=== PATIENT | female | born 1935 | race American Indian/Alaskan Native ===

== ENCOUNTER → 2020-01-20 12:53 | Outpatient (BNVA) | payer MEDICARE, SELFPAY | PROVIDERS: PCP Internal Medicine; Referring Provider Internal Medicine; Visit Provider Hospitalist | DX: J44.9 Chronic obstructive pulmonary disease, unspecified (principal); J96.11 Chronic respiratory failure with hypoxia; M54.9 Dorsalgia, unspecified; Z99.81 Dependence on supplemental oxygen; Z79.899 Other long term (current) drug therapy | CPT/HCPCS: 99212 ==

== ENCOUNTER 2021-01-10 12:49 | Outpatient (REF) | payer MEDICARE, SELFPAY ==
--- NOTE | 2021-01-10 17:08 | PFT_ITS ---
FLOWS: FEV1 52% of predicted at 1.17 L. FVC 52% of predicted at 1.55 L. FEV1 to FVC ratio of 0.75. No bronchodilator response except in small to medium airways. LUNG VOLUMES: Total lung capacity 84% of predicted at 4.79 L. Residual volume 116% of predicted at 3.11 L. Slow vital capacity 55% of predicted at 1.67 L. Expiratory reserve volume 16% predicted at 0.10 L. Diffusion capacity is severely decreased, diffusion capacity adjust to being moderately decreased after correction for alveolar ventilation. IMPRESSION: No obstructive or restrictive ventilatory defect. No bronchodilator response. Decreased expiratory reserve volume suggests extrathoracic restriction likely secondary to abdominal obesity. Decreased diffusion capacity suggests emphysema. MD GERARD Choe/AYAANL / [id number]
== END 2021-01-10 12:50 | disposition home or self-care (01) ==
LOC: HO.RESP 12:49
PROVIDERS: Visit Provider Hospitalist
DX: J44.9 Chronic obstructive pulmonary disease, unspecified (principal)
CPT/HCPCS: 94060; 94727; 94729

== ENCOUNTER → 2021-01-20 12:54 | Outpatient (BNVA) | payer MEDICARE, SELFPAY | PROVIDERS: PCP Internal Medicine; Visit Provider Hospitalist | DX: J96.10 Chronic respiratory failure, unspecified whether with hypoxia or hypercapnia (principal); J44.9 Chronic obstructive pulmonary disease, unspecified | CPT/HCPCS: 99212 ==

== ENCOUNTER 2022-01-17 14:40 | Outpatient (REF) | payer MEDICARE, SELFPAY ==
--- NOTE | ~2022-01-17 | XR_ITS ---
EXAMINATION: XR CHEST CLINICAL INFORMATION: COPD COMPARISON: Previous chest CT February 2019 TECHNIQUE: 2 views of the chest were obtained. FINDINGS: The cardiac and mediastinal contours are stable. The lungs are well-inflated suggestive of COPD. The lungs are clear. There is no pleural effusion or pneumothorax. There are degenerative changes of the spine. XR/XR chest 2V IMPRESSION: Well-inflated lungs suggestive of COPD. No evidence for acute disease in the chest.
== END 2022-01-17 14:41 | disposition home or self-care (01) ==
LOC: HO.XRAY 14:40
PROVIDERS: PCP Internal Medicine; Visit Provider Hospitalist
DX: J44.9 Chronic obstructive pulmonary disease, unspecified (principal); J96.10 Chronic respiratory failure, unspecified whether with hypoxia or hypercapnia
CPT/HCPCS: 71046; 99212

== ENCOUNTER 2023-01-22 13:56 | Outpatient (AMB) | payer MEDICARE, SELFPAY ==
[2023-01-22 14:01] VITALS: PULSE 82; O2SAT 93; BMI 38.4
--- NOTE | 2023-01-22 14:01 | A.OFFVIS_ITS ---
Intake Vital Signs 01/22/23 14:01 Height 5 ft 9 in Weight 260 lb BMI 38.4 Pulse 82 Pulse Oximetry (%) 93 Oxygen Delivery Method Room Air Comment 2 liters Oxygen([employer]) Intake Visit Reasons: copd Gallery Or Museum Guide Required: No Allergies No Known Allergies Allergy (Verified 01/22/23 14:05) HPI HPI Comments History of Present Illness Details The patient is an 87-year-old woman with known COPD and also chronic hypoxic respiratory failure on oxygen. She doesn't use the oxygen all the time only with activity. She has had issues with chest pain specially at nighttime. She believes is related to reflux. She went to see her primary care doctor about it and had an EKG that was abnormal. She was admitted to [facility] observation. There she had an x-ray that demonstrated some changes to the left base consistent with an opacity. In addition to that we did review her CT scan of the chest from 2014 demonstrating numerous pulmonary nodules as well as interstitial changes. At this point based on her symptoms, her abnormal chest x- ray and abnormal CT scan back in 2014 she should get a repeat CT scan at this time. We did talk about her underlying reflux disease. The patient will continue following closely the reflux diet. She should also sleep elevated. She continues use her inhaler. She also did mention about having issues with low heart rates on her pulse oximeter. I explained to her that she has to be careful with the actual reading on the oximeter does not always correct. She did follow-up with her tuckpointer already.She does complaint of off and on back discomfort she is not sure of his lungs. Is moderate severity. Is transient. Not associated with breathing. The patient is concerned for the possibility of any pulmonary issues. We did review her recent CT scan from February 2019 demonstrating stable pulmonary nodules no evidence of any active pleuritis or any other explanation for her discomfort. 01/17/2022 the patient is here for a pulmonary follow-up visit. She continues to be about the same. complaints of dyspnea on exertion. She had been exercising at some point with a stationary elliptical device. She was using up to 30 minutes. She fell at 2 making some headway. Potentially being discouraged when she went walking and she became very short of breath. She had been using her oxygen. However, when she walks uses a pulse device when she exercises at home she uses continuous flow that was likely contributing to her worsening symptoms. In addition to that environment effective will also plan a role. I did encourage the patient to go back to using her stationary elliptical. She is also having hard time sleeping. She did buy melatonin but she has not used it. I did encourage her to use it at nighttime for sleep aid. I also encouraged her not to take a long nap during the daytime as her affect her ability to sleep at nighttime. She continues to use the Anoro. The patient also has a rest in a. She has not used. 01/22/2023 the patient is here for a pulmonary follow-up visit. The patient is doing fairly well from a respiratory status. Denies any worsening shortness of breath or worsening cough. She continues on her current respiratory regimen which includes Anoro and her rescue inhaler. This appeared to be affecting beneficial. No recent imaging studies to review nor pulmonary function studies. She has been complaining of mainly GI issues with nausea. Denies any aspirations into the lungs. The patient has been taking omeprazole. Will go ahead and increase her omeprazole to 40 mg. have her I did recommend the patient follow-up with GI. Also recommended a barium swallow but she opted not to. If her symptoms persist she should also consider getting an x-ray. her last chest x-ray was back in 11/2021 did not demonstrate any acute disease which is reassuring. [facility] Medical History (Updated 01/22/23 @ 20:03 by Tono Gonzalez MD) GERD (gastroesophageal reflux disease) Back pain Chronic respiratory failure COPD (chronic obstructive pulmonary disease) Family History (Updated 01/20/20 @ 20:30 by Tono Gonzalez MD) Father No problems noted. Social History (Updated 01/20/21 @ 13:14 by Mae Amezcua Kymberly) Patient Tobacco Use Status: Former Tobacco user Tobacco use type: Cigarette Years Smoked: 40 years Review of Systems Const Reports daytime sleepiness, Reports difficulty sleeping and Denies night sweats ENT Denies change in voice, Reports dry mouth, Denies lip swelling, Denies mouth pa in and Denies tongue swelling Card Denies chest pain and Reports dyspnea on exertion Resp Reports cough and Reports dyspnea on exertion GI Denies abdominal pain, Reports dyspepsia, Reports heartburn and Reports nausea Musc Reports back pain Neuro Denies Neuro-related abnormal movements Psych Denies no additional complaints Jack/Lymph Denies easy bleeding and Denies lymphadenopathy Aller/Immun Denies lip swelling and Denies tongue swelling Physical Exam Vital Signs: Last Vital Signs Pulse 82 01/22/23 14:01 Pulse Ox 93 01/22/23 14:01 Oxygen Delivery Method Room Air 01/22/23 14:01 BMI result Body Mass Index 38.4 Const General: alert HEENT General nose exam: Abnormal external nose present and Nasal discharge present Eyes Pupils: Equal, round and reactive pupils present Neck Neck: Yes normal visual inspection, Yes full ROM and Yes no lymphadenopathy Chest Chest palpation & inspection: normal inspection of the chest Resp Auscultation: diminished lung sounds Cardio Rate: regular rate Rhythm: regular rhythm Heart sounds: S1 normal heart sound present, S2 normal heart sound present and Murmur heart sound present GI Palpation (GI): Soft to palpation and nontender Auscultation: normal bowel sounds General: Yes no CVA tenderness Back/Spine/Pelvis Back: no CVA tenderness Skin General skin exam: rashes and/or lesions noted Neuro Cranial nerves: Yes Equal, round and reactive pupils present Assessment & Plan Assessment & Plan (1) Chronic respiratory failure: Code(s): J96.10 - Chronic respiratory failure, unspecified whether with hypoxia or hypercapnia Qualifiers: Respiratory failure complication: hypoxia and hypercapnia Qualified Code(s): J96.11 - Chronic respiratory failure with hypoxia; J96.12 - Chronic respiratory failure with hypercapnia Plan: Continue oxygen supplementation with activity and also consider sleep (2) COPD (chronic obstructive pulmonary disease): Code(s): J44.9 - Chronic obstructive pulmonary disease, unspecified Qualifiers: COPD type: chronic bronchitis Chronic bronchitis type: simple Qualified Code(s): J41.0 - Simple chronic bronchitis Plan: Continue Spiriva daily. She does complain of a dry mouth so she can decrease to 1 inhalation daily and see if her dry mouth does get better. (3) GERD (gastroesophageal reflux disease): Code(s): K21.9 - Gastro-esophageal reflux disease without esophagitis Qualifiers: Esophagitis presence: without esophagitis Qualified Code(s): K21.9 - Gastro-esophageal reflux disease without esophagitis (4) Nausea: Code(s): R11.0 - Nausea Plan continue Anoro trial Nasal cannula oxygen with activity and sleep Melatonin increase PPI reflux diet should f/u with PCP of GI regarding on going symptoms CXR F/U 5-6 months or sooner if she develops any worsening symptoms Orders: Orders XR chest 2V Today J41.0 - Simple chronic bronchitis Medications: New ondansetron 4 mg PO Q8H PRN 14 tabs 0RF nausea and vomiting omeprazole 40 mg PO DAILY 30 caps 3RF 30 days Coding Level of Care Code Est Pt Level 4 (64968) Diagnoses Chronic respiratory failure with hypoxia and hypercapnia J96.11; J96.12 Respiratory failure complication: hypoxia and hypercapnia Simple chronic bronchitis J41.0 COPD type: chronic bronchitis Chronic bronchitis type: simple Gastroesophageal reflux disease without esophagitis K21.9 Esophagitis presence: without esophagitis Nausea R11.0 Time Spent (min) 17
== END 2023-01-22 14:32 | disposition home or self-care (01) ==
PROVIDERS: PCP Student in an Organized Health Care Education/Training Program; Visit Provider Hospitalist
DX: J96.11 Chronic respiratory failure with hypoxia (principal); J96.12 Chronic respiratory failure with hypercapnia; J41.0 Simple chronic bronchitis; K21.9 Gastro-esophageal reflux disease without esophagitis; R11.0 Nausea
CPT/HCPCS: 99214

== ENCOUNTER → 2023-01-22 13:56 | Outpatient (BNVA) | payer MEDICARE, SELFPAY | PROVIDERS: PCP Internal Medicine; Visit Provider Hospitalist | DX: J96.11 Chronic respiratory failure with hypoxia (principal); J96.12 Chronic respiratory failure with hypercapnia; J41.0 Simple chronic bronchitis; K21.9 Gastro-esophageal reflux disease without esophagitis; R11.0 Nausea | CPT/HCPCS: 99212 ==

== ENCOUNTER 2023-06-06 10:53 | Outpatient (AMB) | payer MEDICARE, SELFPAY ==
[2023-06-06 11:19] VITALS: PULSE 77; O2SAT 91; BMI 38.4
--- NOTE | 2023-06-06 11:19 | A.OFFVIS_ITS ---
Intake Vital Signs 06/06/23 11:19 Height 5 ft 9 in Weight 260 lb BMI 38.4 Pulse 77 Pulse Source Pulse Oximeter Pulse Oximetry (%) 91 L Oxygen Delivery Method Room Air Intake Visit Reasons: copd Accessibility Lift Technician Required: No Allergies No Known Allergies Allergy (Verified 06/06/23 11:21) HPI HPI Comments History of Present Illness Details The patient is an 87-year-old woman with known COPD and also chronic hypoxic respiratory failure on oxygen. She doesn't use the oxygen all the time only with activity. She has had issues with chest pain specially at nighttime. She believes is related to reflux. She went to see her primary care doctor about it and had an EKG that was abnormal. She was admitted to [facility] observation. There she had an x-ray that demonstrated some changes to the left base consistent with an opacity. In addition to that we did review her CT scan of the chest from 2014 demonstrating numerous pulmonary nodules as well as interstitial changes. At this point based on her symptoms, her abnormal chest x- ray and abnormal CT scan back in 2014 she should get a repeat CT scan at this time. We did talk about her underlying reflux disease. The patient will continue following closely the reflux diet. She should also sleep elevated. She continues use her inhaler. She also did mention about having issues with low heart rates on her pulse oximeter. I explained to her that she has to be careful with the actual reading on the oximeter does not always correct. She did follow-up with her time study observer already.She does complaint of off and on back discomfort she is not sure of his lungs. Is moderate severity. Is transient. Not associated with breathing. The patient is concerned for the possibility of any pulmonary issues. We did review her recent CT scan from February 2019 demonstrating stable pulmonary nodules no evidence of any active pleuritis or any other explanation for her discomfort. 01/17/2022 the patient is here for a pulmonary follow-up visit. She continues to be about the same. complaints of dyspnea on exertion. She had been exercising at some point with a stationary elliptical device. She was using up to 30 minutes. She fell at 2 making some headway. Potentially being discouraged when she went walking and she became very short of breath. She had been using her oxygen. However, when she walks uses a pulse device when she exercises at home she uses continuous flow that was likely contributing to her worsening symptoms. In addition to that environment effective will also plan a role. I did encourage the patient to go back to using her stationary elliptical. She is also having hard time sleeping. She did buy melatonin but she has not used it. I did encourage her to use it at nighttime for sleep aid. I also encouraged her not to take a long nap during the daytime as her affect her ability to sleep at nighttime. She continues to use the Anoro. The patient also has a rest in a. She has not used. 01/22/2023 the patient is here for a pulmonary follow-up visit. The patient is doing fairly well from a respiratory status. Denies any worsening shortness of breath or worsening cough. She continues on her current respiratory regimen which includes Anoro and her rescue inhaler. This appeared to be affecting beneficial. No recent imaging studies to review nor pulmonary function studies. She has been complaining of mainly GI issues with nausea. Denies any aspirations into the lungs. The patient has been taking omeprazole. Will go ahead and increase her omeprazole to 40 mg. have her I did recommend the patient follow-up with GI. Also recommended a barium swallow but she opted not to. If her symptoms persist she should also consider getting an x-ray. her last chest x-ray was back in 11/2021 did not demonstrate any acute disease which is reassuring. 06/06/2023 the patient is here for a pulmonary follow-up visit. Overall the patient continues to have similar symptoms. Continues to have dyspnea on exertion moderate severity. She does use the oxygen with good effect. She also continues on the inhaler therapy. She did have a cardiac catheterization recently at [facility] demonstrated indeed that she has severe aortic stenosis. She did have an evaluation from the Cardiothoracic surgeon. And they did recommend a trans aortic valve replacement. The patient is a good candidate for that although she is waiting for her CT scan of the heart to further address the question. I do believe that having a valve replacement will definitely help her respiratory capacity. Explained to her that it may not necessarily take away the need for oxygen but should allow her to have less dyspnea symptoms. [facility] Medical History (Updated 06/06/23 @ 20:40 by Tono Gonzalez MD) Severe aortic stenosis GERD (gastroesophageal reflux disease) Back pain Chronic respiratory failure COPD (chronic obstructive pulmonary disease) Family History (System 05/02/23 @ 14:11 by Mindi De Leon) Father No problems noted. Social History (System 05/02/23 @ 14:11 by Mindi De Leon) Patient Tobacco Use Status: Former Tobacco user Tobacco use type: Cigarette Years Smoked: 40 years Review of Systems Const Reports difficulty sleeping and Denies night sweats ENT Denies change in voice, Reports dry mouth, Denies lip swelling, Denies mouth pain and Denies tongue swelling Card Denies chest pain and Reports dyspnea on exertion Resp Reports cough and Reports dyspnea on exertion GI Denies abdominal pain, Reports dyspepsia and Reports heartburn Musc Reports back pain Neuro Denies Neuro-related abnormal movements Psych Denies no additional complaints Jack/Lymph Denies easy bleeding and Denies lymphadenopathy Aller/Immun Denies lip swelling and Denies tongue swelling Physical Exam Vital Signs: Last Vital Signs Pulse 77 06/06/23 11:19 Pulse Ox 91 L 06/06/23 11:19 Oxygen Delivery Method Room Air 06/06/23 11:19 BMI result Body Mass Index 38.4 Const General: alert HEENT General nose exam: Abnormal external nose present and Nasal discharge present Eyes Pupils: Equal, round and reactive pupils present Neck Neck: Yes normal visual inspection, Yes full ROM and Yes no lymphadenopathy Chest Chest palpation & inspection: normal inspection of the chest Resp Auscultation: diminished lung sounds Cardio Rate: regular rate Rhythm: regular rhythm Heart sounds: S1 normal heart sound present, S2 normal heart sound present and Murmur heart sound present GI Palpation (GI): Soft to palpation and nontender Auscultation: normal bowel sounds General: Yes no CVA tenderness Back/Spine/Pelvis Back: no CVA tenderness Skin General skin exam: rashes and/or lesions noted Neuro Cranial nerves: Yes Equal, round and reactive pupils present Assessment & Plan Assessment & Plan (1) Chronic respiratory failure: Code(s): J96.10 - Chronic respiratory failure, unspecified whether with hypoxia or hypercapnia Qualifiers: Respiratory failure complication: hypoxia and hypercapnia Qualified Code(s): J96.11 - Chronic respiratory failure with hypoxia; J96.12 - Chronic respiratory failure with hypercapnia Plan: Continue oxygen supplementation with activity and also consider sleep (2) COPD (chronic obstructive pulmonary disease): Code(s): J44.9 - Chronic obstructive pulmonary disease, unspecified Qualifiers: COPD type: chronic bronchitis Chronic bronchitis type: simple Qualified Code(s): J41.0 - Simple chronic bronchitis Plan: Continue Spiriva daily. She does complain of a dry mouth so she can decrease to 1 inhalation daily and see if her dry mouth does get better. (3) GERD (gastroesophageal reflux disease): Code(s): K21.9 - Gastro-esophageal reflux disease without esophagitis Qualifiers: Esophagitis presence: without esophagitis Qualified Code(s): K21.9 - Gastro-esophageal reflux disease without esophagitis (4) Severe aortic stenosis: Code(s): I35.0 - Nonrheumatic aortic (valve) stenosis Plan continue Anoro Nasal cannula oxygen with activity and sleep Melatonin reflux diet Agree with TAVR, should help with her ongoing symptoms PFTs in 5-6 months F/U 5-6 months with PFTs and 6MWT Orders: Orders PFT pulmonary function test 5 Months J41.0 - Simple chronic bronchitis Coding Level of Care Code Est Pt Level 4 (54466) Diagnoses Chronic respiratory failure with hypoxia and hypercapnia J96.11; J96.12 Respiratory failure complication: hypoxia and hypercapnia Simple chronic bronchitis J41.0 COPD type: chronic bronchitis Chronic bronchitis type: simple Gastroesophageal reflux disease without esophagitis K21.9 Esophagitis presence: without esophagitis Severe aortic stenosis I35.0 Time Spent (min) 18
== END 2023-06-06 11:47 | disposition home or self-care (01) ==
PROVIDERS: PCP Student in an Organized Health Care Education/Training Program; Visit Provider Hospitalist
DX: J96.11 Chronic respiratory failure with hypoxia (principal); J96.12 Chronic respiratory failure with hypercapnia; J41.0 Simple chronic bronchitis; K21.9 Gastro-esophageal reflux disease without esophagitis; I35.0 Nonrheumatic aortic (valve) stenosis
CPT/HCPCS: 99214

== ENCOUNTER → 2023-06-06 10:53 | Outpatient (BNVA) | payer MEDICARE, SELFPAY | PROVIDERS: PCP Student in an Organized Health Care Education/Training Program; Visit Provider Hospitalist | DX: J96.11 Chronic respiratory failure with hypoxia (principal); J96.12 Chronic respiratory failure with hypercapnia; J41.0 Simple chronic bronchitis; K21.9 Gastro-esophageal reflux disease without esophagitis; I35.0 Nonrheumatic aortic (valve) stenosis | CPT/HCPCS: 99212 ==

== ENCOUNTER 2023-11-08 13:50 | Outpatient (AMB) | payer MEDICARE, SELFPAY ==
[2023-11-08 13:55] VITALS: PULSE 85; O2SAT 86; BMI 39.1
--- NOTE | 2023-11-08 13:55 | MHC.OFFVIS ---
Vital Signs 11/08/23 13:55 Height 5 ft 9 in Weight 265 lb BMI 39.1 Pulse 85 Pulse Source Pulse Oximeter Pulse Oximetry (%) 86 L Oxygen Delivery Method Room Air Intake Visit Reasons: COPD Setup Technician Required: No Allergies No Known Allergies Allergy (Verified 11/08/23 13:57) HPI Comments Details: The patient is an 88-year-old woman with known COPD and also chronic hypoxic respiratory failure on oxygen. She doesn't use the oxygen all the time only with activity. She has had issues with chest pain specially at nighttime. She believes is related to reflux. She went to see her primary care doctor about it and had an EKG that was abnormal. She was admitted to [facility] observation. There she had an x-ray that demonstrated some changes to the left base consistent with an opacity. In addition to that we did review her CT scan of the chest from 2014 demonstrating numerous pulmonary nodules as well as interstitial changes. At this point based on her symptoms, her abnormal chest x-ray and abnormal CT scan back in 2014 she should get a repeat CT scan at this time. We did talk about her underlying reflux disease. The patient will continue following closely the reflux diet. She should also sleep elevated. She continues use her inhaler. She also did mention about having issues with low heart rates on her pulse oximeter. I explained to her that she has to be careful with the actual reading on the oximeter does not always correct. She did follow-up with her [employer] security consultant already.She does complaint of off and on back discomfort she is not sure of his lungs. Is moderate severity. Is transient. Not associated with breathing. The patient is concerned for the possibility of any pulmonary issues. We did review her recent CT scan from February 2019 demonstrating stable pulmonary nodules no evidence of any active pleuritis or any other explanation for her discomfort. 01/17/2022 the patient is here for a pulmonary follow-up visit. She continues to be about the same. complaints of dyspnea on exertion. She had been exercising at some point with a stationary elliptical device. She was using up to 30 minutes. She fell at 2 making some headway. Potentially being discouraged when she went walking and she became very short of breath. She had been using her oxygen. However, when she walks uses a pulse device when she exercises at home she uses continuous flow that was likely contributing to her worsening symptoms. In addition to that environment effective will also plan a role. I did encourage the patient to go back to using her stationary elliptical. She is also having hard time sleeping. She did buy melatonin but she has not used it. I did encourage her to use it at nighttime for sleep aid. I also encouraged her not to take a long nap during the daytime as her affect her ability to sleep at nighttime. She continues to use the Anoro. The patient also has a rest in a. She has not used. 01/22/2023 the patient is here for a pulmonary follow-up visit. The patient is doing fairly well from a respiratory status. Denies any worsening shortness of breath or worsening cough. She continues on her current respiratory regimen which includes Anoro and her rescue inhaler. This appeared to be affecting beneficial. No recent imaging studies to review nor pulmonary function studies. She has been complaining of mainly GI issues with nausea. Denies any aspirations into the lungs. The patient has been taking omeprazole. Will go ahead and increase her omeprazole to 40 mg. have her I did recommend the patient follow-up with GI. Also recommended a barium swallow but she opted not to. If her symptoms persist she should also consider getting an x-ray. her last chest x-ray was back in 11/2021 did not demonstrate any acute disease which is reassuring. 06/06/2023 the patient is here for a pulmonary follow-up visit. Overall the patient continues to have similar symptoms. Continues to have dyspnea on exertion moderate severity. She does use the oxygen with good effect. She also continues on the inhaler therapy. She did have a cardiac catheterization recently at [facility] demonstrated indeed that she has severe aortic stenosis. She did have an evaluation from the Cardiothoracic surgeon. And they did recommend a trans aortic valve replacement. The patient is a good candidate for that although she is waiting for her CT scan of the heart to further address the question. I do believe that having a valve replacement will definitely help her respiratory capacity. Explained to her that it may not necessarily take away the need for oxygen but should allow her to have less dyspnea symptoms. 11/08/2023 the patient is here for a pulmonary follow-up visit. Overall she is doing better. She did have her aortic valve replaced. After she started cardiac rehab. She did recover from COVID. She has still been using her oxygen. She has a hard time carrying the oxygen tanks. They are not portable for her. We did undergo pulmonary function studies which were reviewed. It appears she does have moderate COPD. Her diffusing capacity 32% predicted she little better from before which was only 28%. Therefore she has actually done slightly better compared to 202. We did go for a walking oximetry and we did a titration study with a portable oxygen concentrator. She was able to maintain her pulse ox with 4 L pulse. She does not need oxygen at rest. We will request a portable oxygen concentrator for the patient in order for her to have better portability outside of the home. She is also going to continue with cardiac rehabilitation. [facility] Medical History (Updated 11/08/23 @ 23:08 by Tono Gonzalez MD) Severe aortic stenosis GERD (gastroesophageal reflux disease) Back pain Chronic respiratory failure COPD (chronic obstructive pulmonary disease) Family History (System 05/02/23 @ 14:11 by Mindi De Leon) Father No problems noted. Social History (System 05/02/23 @ 14:11 by Mindi De Leon) Patient Tobacco Use Status: Former Tobacco user Tobacco use type: Cigarette Years Smoked: 40 years Review of Systems Const Reports difficulty sleeping and Denies night sweats ENT Denies change in voice, Reports dry mouth, Denies lip swelling, Denies mouth pain and Denies tongue swelling Card Denies chest pain and Reports dyspnea on exertion Resp Reports cough and Reports dyspnea on exertion GI Denies abdominal pain, Reports dyspepsia and Reports heartburn Musc Reports back pain Neuro Denies Neuro-related abnormal movements Psych Denies no additional complaints Jack/Lymph Denies easy bleeding and Denies lymphadenopathy Aller/Immun Denies lip swelling and Denies tongue swelling Physical Exam Vital Signs: Last Vital Signs Pulse 85 11/08/23 13:55 Pulse Ox 86 L 11/08/23 13:55 Oxygen Delivery Method Room Air 11/08/23 13:55 BMI result Body Mass Index 39.1 Const General: alert HEENT General nose exam: Abnormal external nose present and Nasal discharge present Eyes Pupils: Equal, round and reactive pupils present Neck Neck: Yes normal visual inspection, Yes full ROM and Yes no lymphadenopathy Chest Chest palpation & inspection: normal inspection of the chest Resp Auscultation: diminished lung sounds Cardio Rate: regular rate Rhythm: regular rhythm Heart sounds: S1 normal heart sound present, S2 normal heart sound present and Murmur heart sound present GI Palpation (GI): Soft to palpation and nontender Auscultation: normal bowel sounds General: Yes no CVA tenderness Back/Spine/Pelvis Back: no CVA tenderness Skin General skin exam: rashes and/or lesions noted Neuro Cranial nerves: Yes Equal, round and reactive pupils present Office Procedures 6 Minute Walk Time:: 23:13 SPO2 % at rest: 92 Pulse at rest: 70 SPO2 % during excercise: 86 Pulse during excercise: 89 Supplemental Oxygen: on RA at rest pox 92%, then ambulated and desaturated to 86% on RA with acitivity. then placed on POC, titrated up to 4l/pulse to keep pox 93% with acitivty 89389 - 6 Minute Walk Assessment & Plan Assessment & Plan (1) Chronic respiratory failure: Code(s): J96.10 - Chronic respiratory failure, unspecified whether with hypoxia or hypercapnia Category: Medical Plan: Continue oxygen supplementation with activity and also consider sleep (2) COPD (chronic obstructive pulmonary disease): Code(s): J44.9 - Chronic obstructive pulmonary disease, unspecified Category: Medical Plan: Continue Spiriva daily. She does complain of a dry mouth so she can decrease to 1 inhalation daily and see if her dry mouth does get better. (3) GERD (gastroesophageal reflux disease): Code(s): K21.9 - Gastro-esophageal reflux disease without esophagitis Category: Medical (4) Severe aortic stenosis: Comment: s/p TVAR Code(s): I35.0 - Nonrheumatic aortic (valve) stenosis Category: Medical Plan continue Anoro Nasal cannula oxygen: revision: The patient benefits from a portable oxygen concentrator in order to have better portability outside of the home.She qualifies for 4L/pulse with acitivity and 2L/min with sleep Melatonin reflux diet continue with cardiac rehab F/U 6-8 months Coding Level of Care Code Est Pt Level 4 (59267) Complex EM visit Add On G2211 Diagnoses Chronic respiratory failure J96.10 COPD (chronic obstructive pulmonary disease) J44.9 GERD (gastroesophageal reflux disease) K21.9 Severe aortic stenosis I35.0 CPT Codes Coding ([id number]) Time Spent (min) 20
[2023-11-08 23:12] VITALS: PULSE 70; O2SAT 92
== END 2023-11-08 14:25 | disposition home or self-care (01) ==
PROVIDERS: PCP Student in an Organized Health Care Education/Training Program; Visit Provider Hospitalist
DX: J96.10 Chronic respiratory failure, unspecified whether with hypoxia or hypercapnia (principal); J44.9 Chronic obstructive pulmonary disease, unspecified; K21.9 Gastro-esophageal reflux disease without esophagitis; I35.0 Nonrheumatic aortic (valve) stenosis
CPT/HCPCS: 94618; 99214; G2211

== ENCOUNTER → 2023-11-08 13:50 | Outpatient (BNVA) | payer MEDICARE, SELFPAY | PROVIDERS: PCP Student in an Organized Health Care Education/Training Program; Visit Provider Hospitalist | DX: J96.11 Chronic respiratory failure with hypoxia (principal); J44.9 Chronic obstructive pulmonary disease, unspecified; I35.0 Nonrheumatic aortic (valve) stenosis; K21.9 Gastro-esophageal reflux disease without esophagitis; Z99.81 Dependence on supplemental oxygen; Z95.2 Presence of prosthetic heart valve | CPT/HCPCS: 94618; 99212 ==

== ENCOUNTER 2024-06-10 13:59 | Outpatient (AMB) | payer MEDICARE, SELFPAY ==
[2024-06-10 14:02] VITALS: BP 160/72; PULSE 102; O2SAT 89; BMI 39.9
--- NOTE | 2024-06-10 14:02 | A.OFFVIS_ITS ---
Vital Signs 06/10/24 14:02 Height 5 ft 9 in Weight 270 lb 1.06 oz BMI 39.9 BP 160/72 H Blood Pressure Location Rt brachial Position Sitting Pulse 102 H Pulse Source Pulse Oximeter Pulse Oximetry (%) 89 L Oxygen Delivery Method Room Air Intake Visit Reasons: COPD Allergies No Known Allergies Allergy (Verified 06/10/24 14:06) HPI Comments Details: The patient is an 88-year-old woman with known COPD and also chronic hypoxic respiratory failure on oxygen. She doesn't use the oxygen all the time only with activity. She has had issues with chest pain specially at nighttime. She believes is related to reflux. She went to see her primary care doctor about it and had an EKG that was abnormal. She was admitted to [facility] observation. There she had an x-ray that demonstrated some changes to the left base consistent with an opacity. In addition to that we did review her CT scan of the chest from 2014 demonstrating numerous pulmonary nodules as well as interstitial changes. At this point based on her symptoms, her abnormal chest x- ray and abnormal CT scan back in 2014 she should get a repeat CT scan at this time. We did talk about her underlying reflux disease. The patient will continue following closely the reflux diet. She should also sleep elevated. She continues use her inhaler. She also did mention about having issues with low heart rates on her pulse oximeter. I explained to her that she has to be careful with the actual reading on the oximeter does not always correct. She did follow-up with her nuclear fuels research engineer already.She does complaint of off and on back discomfort she is not sure of his lungs. Is moderate severity. Is transient. Not associated with breathing. The patient is concerned for the possibility of any pulmonary issues. We did review her recent CT scan from February 2019 demonstrating stable pulmonary nodules no evidence of any active pleuritis or any other explanation for her discomfort. 01/17/2022 the patient is here for a pulmonary follow-up visit. She continues to be about the same. complaints of dyspnea on exertion. She had been exercising at some point with a stationary elliptical device. She was using up to 30 minutes. She fell at 2 making some headway. Potentially being discouraged when she went walking and she became very short of breath. She had been using her oxygen. However, when she walks uses a pulse device when she exercises at home she uses continuous flow that was likely contributing to her worsening symptoms. In addition to that environment effective will also plan a role. I did encourage the patient to go back to using her stationary elliptical. She is also having hard time sleeping. She did buy melatonin but she has not used it. I did encourage her to use it at nighttime for sleep aid. I also encouraged her not to take a long nap during the daytime as her affect her ability to sleep at nighttime. She continues to use the Anoro. The patient also has a rest in a. She has not used. 01/22/2023 the patient is here for a pulmonary follow-up visit. The patient is doing fairly well from a respiratory status. Denies any worsening shortness of breath or worsening cough. She continues on her current respiratory regimen which includes Anoro and her rescue inhaler. This appeared to be affecting beneficial. No recent imaging studies to review nor pulmonary function studies. She has been complaining of mainly GI issues with nausea. Denies any aspirations into the lungs. The patient has been taking omeprazole. Will go ahead and increase her omeprazole to 40 mg. have her I did recommend the patient follow-up with GI. Also recommended a barium swallow but she opted not to. If her symptoms persist she should also consider getting an x-ray. her last chest x-ray was back in 11/2021 did not demonstrate any acute disease which is reassuring. 06/06/2023 the patient is here for a pulmonary follow-up visit. Overall the patient continues to have similar symptoms. Continues to have dyspnea on exertion moderate severity. She does use the oxygen with good effect. She also continues on the inhaler therapy. She did have a cardiac catheterization recently at [facility] demonstrated indeed that she has severe aortic stenosis. She did have an evaluation from the Cardiothoracic surgeon. And they did recommend a trans aortic valve replacement. The patient is a good candidate for that although she is waiting for her CT scan of the heart to further address the question. I do believe that having a valve replacement will definitely help her respiratory capacity. Explained to her that it may not necessarily take away the need for oxygen but should allow her to have less dyspnea symptoms. 11/08/2023 the patient is here for a pulmonary follow-up visit. Overall she is doing better. She did have her aortic valve replaced. After she started cardiac rehab. She did recover from COVID. She has still been using her oxygen. She has a hard time carrying the oxygen tanks. They are not portable for her. We did undergo pulmonary function studies which were reviewed. It appears she does have moderate COPD. Her diffusing capacity 32% predicted she little better from before which was only 28%. Therefore she has actually done slightly better compared to 2020. We did go for a walking oximetry and we did a titration study with a portable oxygen concentrator. She was able to maintain her pulse ox with 4 L pulse. She does not need oxygen at rest. We will request a portable oxygen concentrator for the patient in order for her to have better portability outside of the home. She is also going to continue with cardiac rehabilitation. 06/10/2024 the patient is here for pulmonary follow-up visit. Overall the patient has been doing about the same. She does complaint of cough and shortness of breath. But she does not really want to take any additional medications at this time. She is fine taking the Anoro. She also has nasal congestion and postnasal drip. Moderate severity but she does want using nasal sprays right now. She thinks she has allergies. She can always start a allergy medicines he if this provides some relief. She continues use the oxygen with good effect. She has a portable oxygen concentrator that she finally got from [facility]. The POC has been affecting beneficial for her. Therefore will continue with the current therapy. If she does want to start nasal therapy or if she wants to maximize her allergy medicines or if she wants to switch over to Trelegy she will call. [facility] Medical History (Updated 11/08/23 @ 23:08 by Tono Gonzalez MD) Severe aortic stenosis GERD (gastroesophageal reflux disease) Back pain Chronic respiratory failure COPD (chronic obstructive pulmonary disease) Family History (System 05/02/23 @ 14:11 by Mindi De Leon) Father No problems noted. Social History Patient Tobacco Use Status: Former Tobacco user Tobacco use type: Cigarette Years Smoked: 40 years Review of Systems Const Reports difficulty sleeping and Denies night sweats ENT Denies change in voice, Reports dry mouth, Denies lip swelling, Denies mouth pain and Denies tongue swelling Card Denies chest pain and Reports dyspnea on exertion Resp Reports cough and Reports dyspnea on exertion GI Denies abdominal pain, Reports dyspepsia and Reports heartburn Musc Reports back pain Neuro Denies Neuro-related abnormal movements Psych Denies no additional complaints Jack/Lymph Denies easy bleeding and Denies lymphadenopathy Aller/Immun Denies lip swelling and Denies tongue swelling Physical Exam Vital Signs: Last Vital Signs Pulse 102 H 06/10/24 14:02 BP 160/72 H 06/10/24 14:02 Pulse Ox 89 L 06/10/24 14:02 Oxygen Delivery Method Room Air 06/10/24 14:02 BMI result Body Mass Index 39.9 Const General: alert HEENT General nose exam: Abnormal external nose present and Nasal discharge present Eyes Pupils: Equal, round and reactive pupils present Neck Neck: Yes normal visual inspection, Yes full ROM and Yes no lymphadenopathy Chest Chest palpation & inspection: normal inspection of the chest Resp Auscultation: diminished lung sounds Cardio Rate: regular rate Rhythm: regular rhythm Heart sounds: S1 normal heart sound present, S2 normal heart sound present and Murmur heart sound present GI Palpation (GI): Soft to palpation and nontender Auscultation: normal bowel sounds General: Yes no CVA tenderness Back/Spine/Pelvis Back: no CVA tenderness Skin General skin exam: rashes and/or lesions noted Neuro Cranial nerves: Yes Equal, round and reactive pupils present Assessment & Plan Assessment & Plan (1) Severe aortic stenosis: Comment: s/p TVAR Code(s): I35.0 - Nonrheumatic aortic (valve) stenosis Category: Medical (2) Chronic respiratory failure: Code(s): J96.10 - Chronic respiratory failure, unspecified whether with hypoxia or hypercapnia Category: Medical Qualifiers: Respiratory failure complication: hypoxia and hypercapnia Qualified Code(s): J96.11 - Chronic respiratory failure with hypoxia; J96.12 - Chronic respiratory failure with hypercapnia Plan: Continue oxygen supplementation with activity and also consider sleep (3) COPD (chronic obstructive pulmonary disease): Code(s): J44.9 - Chronic obstructive pulmonary disease, unspecified Category: Medical Qualifiers: COPD type: chronic bronchitis Chronic bronchitis type: mixed simple and mucopurulent Qualified Code(s): 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 She does complain of a dry mouth so she can decrease to 1 inhalation daily and see if her dry mouth does get better. (4) GERD (gastroesophageal reflux disease): Code(s): K21.9 - Gastro-esophageal reflux disease without esophagitis Category: Medical Qualifiers: Esophagitis presence: without esophagitis Qualified Code(s): K21.9 - Gastro-esophageal reflux disease without esophagitis Plan continue Anoro, consider Trelegy Nasal cannula oxygen: revision: The patient benefits from a portable oxygen concentrator in order to have better portability outside of the home.She qualifies for 4L/pulse with acitivity and 2L/min with sleep Melatonin reflux diet F/U 8-12 months Coding Level of Care Code Est Pt Level 4 (57769) Diagnoses Severe aortic stenosis I35.0 Chronic respiratory failure with hypoxia and hypercapnia J96.11; J96.12 Respiratory failure complication: hypoxia and hypercapnia Mixed simple and mucopurulent chronic bronchitis J41.8 COPD type: chronic bronchitis Chronic bronchitis type: mixed simple and mucopurulent Gastroesophageal reflux disease without esophagitis K21.9 Esophagitis presence: without esophagitis Time Spent (min) 16
--- OUTSIDE RECORDS SUMMARY | 2024-06-10 17:27 | XMS_ITS | Encounter Summary ---
Author Organization [facility] Address [address] [place] [address] Care Team Providers Care Swahili Teacher Name Role Phone Bell Dawson MD Primary Care Provider Unavailabl e Lisette Denise MD Primary Care Provider U Lisette Weaver MD Primary Care Provider U navailable Ta Davidson MD Unavailable Unavailable Eliezer Nolen MD Unavailable Unavailable China Cotton NP Unavailable [phone] Pk Mclean MD Primary Care Provider [phone] Dhiraj Mcclain MD Unavailable [phone] Encounter Details Date Type Department Care Team Description 08/26/2013 Hospital Medical Records [address] [place] [address] Ricardo Du MD Social History Tobacco Use Types Packs/Day Years Used Date Smoking Tobacco: Former Cigarettes 2 Q uit: 1985 Smokeless Tobacco: Never Alcohol Use Standard Drinks/Week Comments Yes 0 (1 standard drink = 0.6 oz pur e alcohol) occasionally Alcohol Habits Answer Date Recorded How often do you have a drink containing alcohol ? 2-3 times a week 07/28/2021 How many drinks containing a lcohol do you have on a typical day when you are drinking? 1 or 2 07/28/2021 How often do you have six or more drinks on one occasion? Never 07/28/2021 Social Isolation Answer Date Recorded In a typical week, how many times do you talk on the phone with family, friends, or neighbors? More than three times a week 07/28/2021 How often do you get togethe r with friends or relatives? Never 07/28/2021 How often do you attend chur or confucianist services? More than 4 times per year 07/28/2021 Do you belong to any clubs o r organizations such as advent groups, unions, fraternal or athletic groups, or school groups? No 07/28/2021 How often do you attend meet ings of the clubs or organizations you belong to? Never 07/28/2021 Are you now , , , , never or living with a partner? 07/28/2021 Physical Activity Answer Date Recorded On average, how many days pe r week do you engage in moderate to strenuous exercise (like walking fast, running, jogging, dancing, swimming, biking, or other activities that cause a light or heavy sweat)? 0 days 07/28/2021 On average, how many minutes do you engage in exercise at this level? 0 min 07/28/2021 Stress Answer Date Recorded Do you feel stress - tense, restless, nervous, or anxious, or unable to sleep at night because your mind is troubled all the time - these days? Not at all 07/28/2021 Financial Resource Strain Answer Date R ecorded How hard is it for you to pa y for the very basics like food, housing, medical care, and heating? Not hard at all 07/28/2021 Intimate Partner Violence Answer Date R ecorded Within the last year, have y ou been afraid of your partner or ex-partner? No 07/28/2021 Within the last year, have y ou been humiliated or emotionally abused in other ways by your partner or ex-partner? No Within the last year, have y ou been kicked, hit, slapped, or otherwise physically hurt by your partner or ex-partner? No 07/28/2021 Within the last year, have y ou been raped or forced to have any kind of sexual activity by your partner or ex-partner? No 07/28/2021 Food Insecurity Answer Date Recorded Within the past 12 months, y ou worried that your food would run out before you got money to buy more. Never true 07/28/2021 Within the past 12 months, t he food you bought just didn't last and you didn't have money to get more. Never true 07/28/2021 Transportation Needs Answer Date Record ed In the past 12 months, has l ack of transportation kept you from medical appointments or from getting medications? No 07/17 In the past 12 months, has l ack of transportation kept you from meetings, work, or getting things needed for daily living? No 07/28/2021 Housing Stability Answer Date Recorded In the last 12 months, was t here a time when you were not able to pay the mortgage or rent on time? No 07/28/2021 In the last 12 months, how many places have you lived? 1 07/28/2021 In the last 12 months, was t here a time when you did not have a steady place to sleep or slept in a prison (including now)? No 07/28/2021 Sex Assigned at Date Recorded Not on file Job Start Date Occupation Industry Not on file Not on file Not on file documented as of this encounter Plan of Treatment Not on file documented as of this encounter Visit Diagnoses Not on filedocumented in this encounter Care Teams Swahili Teacher Relationship Specialty Start Date End Date Bell Dawson MD PCP - General Family Practice 07/02/17 05/05/18 Lisette Denise MD PCP - General Internal Medicine 05/06/18 Lisette Denise MD PCP - General 11/02/14 8 Pk Mclean MD PCP - General Internal Medicine 03/22/22 Ta Davidson MD Specialist Urology 07/28/21 Eliezer Nolen MD Specialist Rheumatology 07/28/21 China Cotton NP Nurse Practitioner Cardiology 10/04/21 Dhiraj Mcclain MD Specialist Cardiology 08/17/23 documented as of this encounter
--- OUTSIDE RECORDS SUMMARY | 2024-06-10 17:27 | XMS_ITS | Encounter Summary ---
Author Organization [facility] Address [address] [place] [address] Care Team Providers Care Bell Attendant Name Role Phone Ta Davidson MD Unavailable Unavailable Eliezer Nolen MD Unavailable Unavailable China Cotton NP Unavailable [phone] Pk Mclean MD Primary Care Provider [phone] Dhiraj Mcclain MD Unavailable [phone] Reason for Visit * Reason Onset Date Comments Hospital Procedure 05/17/2023 L heart cath ? PCI Encounter Details Date Type Department Care Team Description 05/17/2023 Telephone Cardio PVC POC [address] [place] [address] China Cotton, BETHANY [address] [place] [address] [place] [address] Hospital Procedure (L heart cath ? PCI) Social History Tobacco Use Types Packs/Day Years Used Date Smoking Tobacco: Former Cigarettes Q uit: 1986 Smokeless Tobacco: Never Alcohol Use Standard Drinks/Week Comments Yes 0 (1 standard drink = 0.6 oz pure alcohol) binge drinking wine on weekend 1 bottle/sitting Alcohol Habits Answer Date Recorded How often [...] How often do you attend chur or pentecostalism services? More than 4 times per year 07/28/2021 Do you belong to any clubs o r organizations such as mandaen groups, unions, fraAdayana or athletic groups, or school groups? No [...] place to sleep or slept in a intermediate (including now)? No 07/28/2021 Sex Assigned at Date Recorded Not on file Job Start Date Occupation Industry Not on file Not on file Not on file documented as of this encounter Miscellaneous Notes * Telephone Encounter - Luisa Carmen C.M.A. - 05/17/2023 2:18 PM EST I left a message for the patietn to return my call to give cath instructions Pt is scheduled for a LHeart Cath on Sunday May 21, 2023 at 7:30 am arrival [place] 6:000 [place] spoke with pt., we went over the appointment information and the pre-procedure instructions including needing someone to drive her, staying NPO after midnight and the need for labs. She can take all her medications the morning of the procedure with a small amount of water the morning of the procedure. I was able to answer her questions and she acknowledged understanding. documented in this encounter Plan of Treatment Not on file documented as of this encounter Visit Diagnoses Not on filedocumented in this encounter Care Teams Bell Attendant Relationship Specialty Start Date End Date Pk Mclean MD PCP - General Internal Medicine 03/22/22 Ta Davidson MD Specialist Urology 07/28/21 Eliezer Nolen MD Specialist Rheumatology 07/28/21 China Cotton NP Nurse Practitioner Cardiology 10/04/21 Dhiraj Mcclain MD Specialist Cardiology 08/17/23 documented as of this encounter
--- OUTSIDE RECORDS SUMMARY | 2024-06-10 17:27 | XMS_ITS | Encounter Summary ---
Author Organization [facility] Address [address] [place] [address] Care Team Providers Care Wad Compressor Operator Adjuster Name Role Phone Lisette Denise MD Primary Care Provider U Ta Grande MD Unavailable Unavailable Eliezer Nolen MD Unavailable Unavailable China Cotton NP Unavailable [phone] Pk Mclean MD Primary Care Provider [phone] Dhiraj Mcclain MD Unavailable [phone] Encounter Details Date Type Department Care Team Description 07/18/2021 Airline Transport Pilot Report Medical Records [address] [place] [id number] Ta Davidson MD Social History Tobacco Use Types Packs/Day Years Used Date Smoking Tobacco: Former Cigarettes Q uit: 1985 Smokeless Tobacco: Never Alcohol Use Standard Drinks/Week Comments Yes 0 (1 standard drink = 0.6 oz pure alcohol) binge drining wine on weekend 1 bottle/sitting Alcohol Habits [...] 07/28/2021 How often do you attend chur ch or protestant services? More than 4 times per year 07/28/2021 Do you belong to any clubs o r organizations such as christianity groups, unions, fraternal or athletic groups, or [...] place to sleep or slept in a chcf (including now)? No 07/28/2021 Sex Assigned at Date Recorded Not on file Job Start Date Occupation Industry Not on file Not on file Not on file documented as of this encounter Plan of Treatment Not on file documented as of this encounter Visit Diagnoses Not on filedocumented in this encounter Care Teams Wad Compressor Operator Adjuster Relationship Specialty Start Date End Date Lisette Denise MD PCP - General Internal Medicine 05/06/18 Pk Mclean MD PCP - General Internal Medicine 03/22/22 Ta Davidson MD Specialist Urology 07/28/21 Eliezer Nolen MD Specialist Rheumatology 07/28/21 China Cotton NP Nurse Practitioner Cardiology 10/04/21 Dhiraj Mcclain MD Specialist Cardiology 08/17/23 documented as of this encounter
--- OUTSIDE RECORDS SUMMARY | 2024-06-10 17:27 | XMS_ITS | Encounter Summary ---
Author Organization [facility] Address [address] [place] [address] Care Team Providers Care Warp Knitter Helper Name Role Phone Ta Davidson MD Unavailable Unavailable Eliezer Nolen MD Unavailable Unavailable China Cotton NP Unavailable [phone] Pk Mclean MD Primary Care Provider [phone] Dhiraj Mcclain MD Unavailable [phone] Encounter Details Date Type Department Care Team Description 10/30/2023 SCAN Medical Records [address] [place] [id number] Campbell Byrnes MD Social History Tobacco Use Types Packs/Day [...] Never 07/28/2021 How often do you attend [facility] or nondenominational services? More than 4 times per year 07/28/2021 Do you belong to any clubs o r organizations such as roman catholic groups, unions, fraternal or athletic groups, or [...] place to sleep or slept in a alf (including now)? No 07/28/2021 Sex Assigned at Date Recorded Not on file Job Start Date Occupation Industry Not on file Not on file Not on file documented as of this encounter Plan of Treatment Not on file documented as of this encounter Procedures Procedure Name Priority Date/Time Associated Diagnosis Comments OUTSIDE PFT Routine 10/30/2023 documented in this encounter Results * OUTSIDE PFT (10/30/2023) Provider Default PULMONOLOGY documented in this encounter Visit Diagnoses Not on filedocumented in this encounter Care Teams Warp Knitter Helper Relationship Specialty Start Date End Date Pk Mclean MD PCP - General Internal Medicine 03/22/22 Ta Davidson MD Specialist Urology 07/28/21 Eliezer Nolen MD Specialist Rheumatology 07/28/21 China Cotton NP Nurse Practitioner Cardiology 10/04/21 Dhiraj Mcclain MD Specialist Cardiology 08/17/23 documented as of this encounter
--- OUTSIDE RECORDS SUMMARY | 2024-06-10 17:27 | XMS_ITS | Encounter Summary ---
Author Organization [facility] Address [address] [place] [address] Care Team Providers Care Lay Ups Assembler Name Role Phone Ta Davidson MD Unavailable Unavailable Eliezer Nolen MD Unavailable Unavailable China Cotton NP Unavailable [phone] Pk Mclean MD Primary Care Provider [phone] Dhiraj Mcclain MD Unavailable [phone] Encounter Details Date Type Department Care Team Description 09/07/2023 SCAN Medical Records [address] [place] [id number] Abstract, Provider Social History Tobacco Use Types Packs/Day Years [...] Never 07/28/2021 How often do you attend [facility] or druze services? More than 4 times per year 07/28/2021 Do you belong to any clubs o r organizations such as adventism groups, unions, fraternal or athletic groups, or [...] place to sleep or slept in a jail (including now)? No 07/28/2021 Sex Assigned at Date Recorded Not on file Job Start Date Occupation Industry Not on file Not on file Not on file documented as of this encounter Plan of Treatment Not on file documented as of this encounter Procedures Procedure Name Priority Date/Time Associated Diagnosis Comments OUTSIDE LAB Routine 09/07/2023 documented in this encounter Results * OUTSIDE LAB (09/07/2023) Provider Abstract LAB documented in this encounter Visit Diagnoses Not on filedocumented in this encounter Care Teams Lay Ups Assembler Relationship Specialty Start Date End Date Pk Mclean MD PCP - General Internal Medicine 03/22/22 Ta Davidson MD Specialist Urology 07/28/21 Eliezer Nolen MD Specialist Rheumatology 07/28/21 China Cotton NP Nurse Practitioner Cardiology 10/04/21 Dhiraj Mcclain MD Specialist Cardiology 08/17/23 documented as of this encounter
--- OUTSIDE RECORDS SUMMARY | 2024-06-10 17:27 | XMS_ITS | Encounter Summary ---
Author Organization [facility] Address [address] [place] [address] Care Team Providers Care Clearing Inspector Name Role Phone Ta Davidson MD Unavailable Unavailable Eliezer Nolen MD Unavailable Unavailable China Cotton NP Unavailable [phone] Pk Mclean MD Primary Care Provider [phone] Dhiraj Mcclain MD Unavailable [phone] Encounter Details Date Type Department Care Team Description 07/21/2022 Business Analyst Sales Operations Report Medical Records [address] [place] [id number] Carlitos Hardin MD Social History Tobacco Use Types Packs/Day [...] Never 07/28/2021 How often do you attend [facility] or shinto services? More than 4 times per year 07/28/2021 Do you belong to any clubs o r organizations such as congregation groups, unions, fraternal or athletic groups, or [...] place to sleep or slept in a care home (including now)? No 07/28/2021 Sex Assigned at Date Recorded Not on file Job Start Date Occupation Industry Not on file Not on file Not on file documented as of this encounter Plan of Treatment Not on file documented as of this encounter Visit Diagnoses Not on filedocumented in this encounter Care Teams Clearing Inspector Relationship Specialty Start Date End Date Pk Mclean MD PCP - General Internal Medicine 03/22/22 Ta Davidson MD Specialist Urology 07/28/21 Eliezer Nolen MD Specialist Rheumatology 07/28/21 China Cotton NP Nurse Practitioner Cardiology 10/04/21 Dhiraj Mcclain MD Specialist Cardiology 08/17/23 documented as of this encounter
--- OUTSIDE RECORDS SUMMARY | 2024-06-10 17:27 | XMS_ITS | Clinical Summary ---
Author Organization [facility] Address [address] [place] [address] Care Team Providers Care Triage Register Nurse Name Role Phone Ta Davidson MD Unavailable Unavailable Eliezer Nolen MD Unavailable Unavailable China Cotton NP Unavailable [phone] Pk Mclean MD Primary Care Provider [phone] Dhiraj Mcclain MD Unavailable [phone] Allergies No known active allergies Medications Medication Sig Dispensed Refills Start Date End Date Status Oxygen Historical (HISTORICAL OXYGEN) Inhale 2 L into the lungs. [facility] 0 Active Umeclidinium-Vilantero l (Anoro Ellipta) 62.5-25 MCG/INH AEROSOL POWDER,BREATH ACTIVATEDIndications:M ixed simple and mucopurulent chronic bronchitis (HCC) Inhale 1 Puff into the lungs daily. 0 04/04/2021 Active allopurinol (ZYLOPRIM) 100 MG tablet Take 1 Tablet by mouth Once. 180 Tablet 1 08/03/2023 Active pravastatin (PRAVACHOL) 40 MG tablet TAKE 1 TABLET BY MOUTH EVERY DAY 90 Tablet 1 08/06/2023 Active metoprolol (TOPROL-XL) 25 MG 24 hr tablet TAKE 1 TABLET BY MOUTH EVERY DAY 90 Tablet 1 09/11/2023 Active aspirin 81 MG EC tabletIndications:S/p TAVR (transcatheter aortic valve replacement), bioprosthetic Take 1 Tablet by mouth daily. 30 Tablet 5 09/14/2023 Active Active Problems Problem Noted Date S/p TAVR (transcatheter aortic valve rep lacement), bioprosthetic 09/14/2023 Coronary artery disease invo lving [place] coronary artery of [place] heart without angina pectoris 09/14/2023 History of cardiac catheterization 06/11 Overview: Done on 08/31/2023 at [facility] indications:Aortic Stenosis Done on 05/21/2023 at [facility] indications:Aortic stenois Low vitamin D level 05/26/2022 Neuropathy 09/21/2020 Recurrent major depressive disorder, in partial remission 02/26/2019 Mild concentric left ventricular hypertr ophy 09/30/2018 Aortic valve stenosis 09/30/2018 Last Assessment & Plan: Has history of aortic stenosis and on most recent echocardiogram showing severe aortic stenosis. She continues to report worsening shortness of breath. She does have significant COPD and uses oxygen therapy. On physical examination she appears euvolemic. We discussed aortic stenosis which has in her case now becomes severe. We reviewed that the symptoms of worsening aortic stenosis include worsening shortness of breath, increased exertional fatigue, exertional chest pain, lightheadedness and syncope. She has started to develop some of the symptoms at this time I believe we should move forward with further evaluation and consideration of TAVR procedure given her comorbidities. We discussed that the neck step would be to arrange for a coronary angiogram to evaluate her coronary anatomy. There is some concern with her inability to lay flat. I discussed this with Dr. Wang during the office visit today and he agrees and trying to move forward with coronary angiogram for further evaluation of her coronary anatomy as well as her aortic valve. Risks and benefits of coronary angiogram discussed with patient including the increased risk for bleeding and the less than 0.1% risk for AR, stroke or . The patient understands and wishes to proceed with coronary angiogram. All questions answered. Given lab slip to complete blood work today. 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 She will continue with her present medical therapies which includes metoprolol. 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 This is at goal. Continue with pravastatin 40 mg once a day. Osteopenia 04/21/2016 Resolved Problems Problem Noted Date Resolved Date Murmur 05/28/2018 04/04/2021 Depression 01/05/2017 02/26/2019 Immunizations Name Administration Dates Next Due COVID-19 (Pfizer) 12/22/2020,05/18/2020,04/24/19 21 Influenza Flu (PT Reported) 10/29/2022, 2 Influenza vaccine high dose age 65 and over 11/17,12/02/2018,01/05/2017 Pneumococcal Conjugate PCV-20 10/29/2022 Family History Medical History Relation Name Comments CAD Brother Cancer of the Breast Daughter 1 Gabbi ag e 51 CAD Father Other Mother Hiatal hernia, GERD Relation Name Status Comments Brother Daughter 1 Gabbi Daughter 2 Angelica Alive Father Mother Son Jono Alive Social History Tobacco Use Types Packs/Day Years Used Date Smoking Tobacco: Former Cigarettes 2 Q uit: 1985 Smokeless Tobacco: Never Tobacco Cessation:Counseling Given: Not Answered Alcohol Use Standard Drinks/Week Comments Yes 0 [...] Never 07/28/2021 How often do you attend [facility] or orthodoxy services? More than 4 times per year 07/28/2021 Do you belong to any clubs o r organizations such as sabianism groups, unions, fraternal or athletic groups, or [...] place to sleep or slept in a group home (including now)? No 07/28/2021 Sex Assigned at Date Recorded Not on file Job Start Date Occupation Industry Not on file Not on file Not on file Last Filed Vital Signs Vital Sign Reading Time Taken Comments Blood Pressure 146/73 11/28/2023 1:42 PM EDT Pulse 75 11/28/2023 1:42 PM EDT Temperature 36.2 ??C (97.1 ??F) 11/28/2023 1:42 PM ED T Respiratory Rate 16 07/27/2021 3:56 PM EDT Oxygen Saturation 90% 11/28/2023 1:42 PM EDT Inhaled Oxygen Concentration - - Weight 119.3 kg (263 lb) 11/28/2023 1:42 PM EDT Height 175.3 cm (5' 9 ) 11/28/2023 1:42 PM EDT Body Mass Index 38.84 11/28/2023 1:42 PM EDT Plan of Treatment Health Maintenance Due Date Last Done Comments DTAP/TDAP/TD (1 - Tdap) 1954 SHINGLES VACCINE (1 of 2) 09/26/1987 BONE DENSITY SCREENING 02/26/2020 8 (External Completion) MAMMOGRAM 12/09/2020 12/10/2019, 08/18, 09/11/2017 (External Completion), Additional history exists Covid-19 Vaccine (2022-2 4 season) 2023 12/22/2020, 05/18/2020, 04/24/2020 INFLUENZA (#1) 2023 10/29/2022, 11/18, 12/01/2020, Additional history exists BMI CHECK/ADVISE 03/19/2024 11/28/2023, , 09/14/2023, Additional history exists CHOLESTEROL SCREENING 11/19/2028 11/20/2023 , 05/25/2022, 12/15/2021, Additional history exists PNEUMOCOCCAL VACCINE Completed 10/29/2022 Care Teams Triage Register Nurse Relationship Specialty Start Date End Date Pk Mclean MD PCP - General Internal Medicine 03/22/22 Ta Davidson MD Specialist Urology 07/28/21 Eliezer Nolen MD Specialist Rheumatology 07/28/21 China Cotton NP Nurse Practitioner Cardiology 10/04/21 Dhiraj Mcclain MD Specialist Cardiology 08/17/23
--- OUTSIDE RECORDS SUMMARY | 2024-06-10 17:27 | XMS_ITS | Encounter Summary ---
Author Organization [facility] Address [address] [place] [address] Care Team Providers Care Records Supervisor Name Role Phone Ta Davidson MD Unavailable Unavailable Eliezer Nolen MD Unavailable Unavailable China Cotton NP Unavailable [phone] Pk Mclean MD Primary Care Provider [phone] Dhiraj Mcclain MD Unavailable Encounter Details Date Type Department Care Team Description 07/23/2023 Hospital Medical Records [address] [place] [id number] Social History Tobacco Use Types Packs/Day Years [...] 07/28/2021 How often do you attend [facility] or confucianism services? More than 4 times per year 07/28/2021 Do you belong to any clubs o r organizations such as yazdanism groups, unions, fraternal or athletic groups, or [...] place to sleep or slept in a detention (including now)? No 07/28/2021 Sex Assigned at Date Recorded Not on file Job Start Date Occupation Industry Not on file Not on file Not on file documented as of this encounter Plan of Treatment Not on file documented as of this encounter Procedures Procedure Name Priority Date/Time Associated Diagnosis Comments OUTSIDE LAB Routine 07/27/2023 OUTSIDE EKG Routine 07/23/2023 OUTSIDE PLAIN FILM Routine 07/23/2023 documented in this encounter Results * OUTSIDE LAB (07/27/2023) Provider Abstract LAB * OUTSIDE PLAIN FILM (07/23/2023) Provider Abstract RADIOLOGY * OUTSIDE EKG (07/23/2023) Provider Abstract CARDIOLOGY documented in this encounter Visit Diagnoses Not on filedocumented in this encounter Care Teams Records Supervisor Relationship Specialty Start Date End Date Pk Mclean MD PCP - General Internal Medicine 03/22/22 Ta Davidson MD Specialist Urology 07/28/21 Eliezer Nolen MD Specialist Rheumatology 07/28/21 China Cotton NP Nurse Practitioner Cardiology 10/04/21 Dhiraj Mcclain MD Specialist Cardiology 08/17/23 documented as of this encounter
--- OUTSIDE RECORDS SUMMARY | 2024-06-10 17:27 | XMS_ITS | Clinical Summary ---
Author Organization [facility] Address [address] [place] [address] Care Team Providers Care Director Strategic Account Management Name Role Phone Unavailable Primary Care Provider Unavailabl e Social History Tobacco Use Types Packs/Day Years Used Date Smoking Tobacco: Never Assessed Comments Unknown Sex and Gender Information Value Date Recorded Sex Assigned at Not on file Legal Sex Female 3:35 AM EDT Gender Identity Not on file Sexual Orientation Not on file Plan of Treatment Health Maintenance Due Date Last Done Comments DTaP/Tdap/Td (1 - Tdap) 09/26/1953 Pneumococcal 50+ years (1 of 1 - PCV) 09/26/1987 Zoster (Shingrix) (1 of 2) 09/26/1987 Bone Density 2002 RSV (1 - 1-dose 75+ series) 2012 COVID-19 Vaccine (2023-2 5 season) 2023 Influenza (#1) 2023 HPV Vaccine Aged Out No longer eligi ble based on patient's age to complete this topic Hep A Aged Out No longer eligi ble based on patient's age to complete this topic Hep B Aged Out No longer eligi ble based on patient's age to complete this topic Hib Aged Out No longer eligi ble based on patient's age to complete this topic Mammogram/Breast Imaging Discontinued Meningococcal ACWY Aged Out No longer eligible based on patient's age to complete this topic Pap Smear Discontinued Zoster (Zostavax) Discontinued
--- OUTSIDE RECORDS SUMMARY | 2024-06-10 17:27 | XMS_ITS | Encounter Summary ---
Author Organization [facility] Address [address] [place] [address] Care Team Providers Care Caser Name Role Phone Ta Davidson MD Unavailable Unavailable Eliezer Nolen MD Unavailable Unavailable China Cotton NP Unavailable [phone] Pk Mclean MD Primary Care Provider Dhiraj Mcclain MD Unavailable [phone] Encounter Details Date Type Department Care Team Description 04/19/2023 Orders Only Medical Records [address] [place] [id number] Ricardo Du MD Social History Tobacco Use [...] often do you attend chur ch or scientology services? More than 4 times per year 07/28/2021 Do you belong to any clubs o r organizations such as mandaeism groups, unions, fraternal or athletic groups, or [...] place to sleep or slept in a long term (including now)? No 07/28/2021 Sex Assigned at Date Recorded Not on file Job Start Date Occupation Industry Not on file Not on file Not on file documented as of this encounter Plan of Treatment Not on file documented as of this encounter Procedures Procedure Name Priority Date/Time Associated Diagnosis Comments OUTSIDE IMAGING Routine 04/12/2023 documented in this encounter Results * OUTSIDE IMAGING (04/12/2023) Ricardo Du MD RADIOLOGY documented in this encounter Visit Diagnoses Not on filedocumented in this encounter Care Teams Caser Relationship Specialty Start Date End Date Pk Mclean MD PCP - General Internal Medicine 03/22/22 Ta Davidson MD Specialist Urology 07/28/21 Eliezer Nolen MD Specialist Rheumatology 07/28/21 China Cotton NP Nurse Practitioner Cardiology 10/04/21 Dhiraj Mcclain MD Specialist Cardiology 08/17/23 documented as of this encounter
--- OUTSIDE RECORDS SUMMARY | 2024-06-10 17:27 | XMS_ITS | Encounter Summary ---
Author Organization [facility] Address [address] [place] [address] Care Team Providers Care Manager Produce Name Role Phone Lisette Denise MD Primary Care Provider U [place] MD Unavailable Unavailable Eliezer Nolen MD Unavailable Unavailable China Cotton NP Unavailable [phone] Pk Mclean MD Primary Care Provider [phone] Dhiraj Mcclain MD Unavailable [phone] Reason for Visit * Reason Onset Date Comments Faxed Refill 03/30/2020 Encounter Details Date Type Department Care Team Description 03/30/2020 Refill Adult Medicine - [address] [address] Lisette Denise MD Faxed Refill Social History Tobacco Use Types Packs/Day Years [...] How often do you attend chur or scientology services? More than 4 times per year 07/28/2021 Do you belong to any clubs o r organizations such as baptism groups, unions, fraternal or athletic groups, or [...] place to sleep or slept in a fpc (including now)? No 07/28/2021 Sex Assigned at Date Recorded Not on file Job Start Date Occupation Industry Not on file Not on file Not on file documented as of this encounter Miscellaneous Notes * Telephone Encounter - Loretta Davila M.A. - 03/30/2020 4:10 PM EST esteban 01.09.20, pending appt 04.13. Lab Results Component Value Date NA 140 11/03/2019 K 4.4 11/03/2019 CO2 27 11/03/2019 CL 106 11/03/2019 BUN 12 11/03/2019 CREAT 0.70 11/03/2019 GLU 104 11/03/2019 CA 9.0 11/03/2019 GFR > 60 11/03/2019 * Telephone Encounter - Luisa Sun - 03/30/2020 4:05 PM EST Patient would like script to be: E-PRESCRIBED/FAXED TO PHARMACY WHEN WAS THE PATIENT'S LAST APPOINTMENT IN ADULT MEDICINE? 01/09/20 WHEN WAS THE LAST TIME THE PATIENT SAW THEIR PCP? 12/11/19 Does patient have an upcoming appointment? Yes 04/13/20 (THE MEDICATION REQUESTED IS ON THE MED LIST ABOVE) All of the medications requested were on the CURRENT MEDS list Did you check the Pharmacy information above?: YES Patient wants: 90 -day supply Is this a mail order prescription request ? NO If the refill is from a FAXED refill request what is the RX # listed on the fax? N/A Patients current insurance carrier is: Payor: [employer] / Plan: PPO $20 [place] [id number] / Product Type: POS [id number] Insurance ID #: [id number] documented in this encounter Plan of Treatment Not on file documented as of this encounter Visit Diagnoses Not on filedocumented in this encounter Care Teams Manager Produce Relationship Specialty Start Date End Date Lisette Denise MD PCP - General Internal Medicine 05/06/18 Pk Mclean MD PCP - General Internal Medicine 03/22/22 Ta Davidson MD Specialist Urology 07/28/21 Eliezer Nolen MD Specialist Rheumatology 07/28/21 China Cotton NP Nurse Practitioner Cardiology 10/04/21 Dhiraj Mcclain MD Specialist Cardiology 08/17/23 documented as of this encounter
--- OUTSIDE RECORDS SUMMARY | 2024-06-10 17:27 | XMS_ITS | Encounter Summary ---
Author Organization [facility] Address [address] [place] [address] Care Team Providers Care Cabin Supervisor Name Role Phone Unavailable Primary Care Provider Unavailabl e Encounter Details Date Type Department Care Team (Late st Contact Info) Description 03/27/2016 Scanned Document [facility] [address] [facility] [address] [place] [phone] Robinson Rodríguez MD [address] [facility] [address] [place] [address] Social History Tobacco Use Types Packs/Day Years Used Date Smoking Tobacco: Never Assessed Sex and Gender Information Value Date Recorded Sex Assigned at Not on file Gender Identity Not on file Sexual Orientation Not on file documented as of this encounter Plan of Treatment Not on file documented as of this encounter Visit Diagnoses Not on filedocumented in this encounter
--- OUTSIDE RECORDS SUMMARY | 2024-06-10 17:27 | XMS_ITS | Clinical Summary ---
Author Organization [facility] Address [address] [address] Phone Care Team Providers Care Outside Machinist Supervisor Name Role Phone Pk Mclean MD Primary Care Provider [phone] Allergies No known active allergies Medications pravastatin (PRAVACHOL) 40 mg tablet TAKE 1 TABLET BY MOUTH EVERY DAY 90 tablet 1 02/04/20 24 Active allopurinoL (ZYLOPRIM) 100 mg tablet Take 1 tablet (100 mg total) by mouth 1 (one) time each day. Active aspirin 81 mg EC tablet Take 1 tablet (81 mg total) by mouth 1 (one) time each day. 09/14/19 24 Active Anoro Ellipta 62.5-25 mcg/actuation inhaler Inhale 1 Puff into the lungs daily. 04/04/19 22 Active Oxygen Therapy (O2) gas Inhale 2 L into the lungs. [facility] Active amoxicillin (AMOXIL) 500 mg capsule Take 4 tablets by mouth once 30-60 minutes prior to dental procedure 4 each 3 03/20/19 25 Active propafenone (RYTHMOL) 150 mg tablet Take 1 tablet (150 mg total) by mouth 2 (two) times a day. 60 tablet 11 06/11/19 25 Active flecainide (TAMBOCOR) 50 mg tablet Take 1 tablet (50 mg total) by mouth 2 (two) times a day. 60 each 11 06/06/19 25 025 Discontinued Active Problems Problem Noted Date Diagnosed Date Multiple premature ventricular complexes 025 Assessment & Plan (06/05/2024 11:48 AM EDT): This 88-year-old female with aortic stenosis status post TAVR has frequent ventricular ectopy with over 40% PVC burden and a clear pulse deficit that may be contributing to her lightheadedness and fatigue. We have seen no significant improvement without metoprolol. Her symptoms are fairly modest but I do believe that warrants an attempted treatment. Unfortunately, the morphology does suggest it may be in the LV summit and it is not clear whether this will be amenable to ablation. From a pharmacologic standpoint flecainide is the most likely to work for PVCs and given a normal left ventricular ejection fraction and absence of coronary disease by angiogram she should be able to tolerate 50 mg twice daily of flecainide quite well. I see no evidence of underlying conduction disease on her ECG. I went over the small risk of proarrhythmia and/or conduction disease advancement. She is in agreement to a trial of 50 mg twice daily and we will repeat a Holter monitor 1 to 2 weeks after starting the new medication. I do not feel it is imperative to suppress these PVCs such that if this medication is not effective or tolerated I would not necessarily go to amiodarone. I did reassure her that her heart is healthy, her TAVR valve is working beautifully and her risk for malignant arrhythmias, syncope or sudden or an extremely low given the positive findings on her workup overall. S/P TAVR (transcatheter aortic valve replacement ) 05/01/2024 Class 2 severe obesity due t o excess calories with serious comorbidity and body mass index (BMI) of 36.0 to 36.9 in adult 02/20/2024 Coronary artery disease invo lving samish coronary artery of samish heart without angina pectoris 09/14/2023 Low vitamin D level 05/26/2022 Neuropathy 09/21/2020 Recurrent major depressive disorder, in partial remission 02/26/2019 Aortic valve stenosis 09/30/2018 Overview (02/20/2024): Last Assessment & Plan: Has history of [...] and the less than 0.1% risk for OR, stroke or . The patient understands and wishes to proceed with coronary angiogram. All questions answered. Given lab slip to complete blood work today. Assessment & Plan (06/05/2024 11:48 AM EDT): Aortic stenosis status post TAVR. Continue follow up with Dr Mcclain. Mild concentric left ventricular hypertrophy Actinic keratosis 05/28/2018 Diverticulosis 05/28/2018 Gastroesophageal reflux disease 05/28/2018 Overview (02/20/2024): 2014 mild reactive Gout 05/28/2018 Osteoarthritis 05/28/2018 Overview (02/20/2024): Thoracic spine, Right Knee Primary hypertension 05/28/2018 Overview (02/20/2024): Last Assessment & Plan: Patient's blood pressure is under control with a reading today of 138/88. She will continue with her present medical therapies which includes metoprolol. Assessment & Plan (06/05/2024 11:49 AM EDT): Systolic blood pressure was elevated today but she says her home readings have been better. Will continue to monitor, continue efforts at weight loss and a low- sodium diet. Right internal carotid artery aneurysm 9 Overview (02/20/2024): 04/2016, 4.4 x 4.0 x 4.5 mm partially thrombosed partially calcified supraclinoid internal carotid artery aneurysm Substance abuse 05/28/2018 Overview (02/20/2024): 12/2017 Alcohol -binge drinking weekeds 1 bottle wine/sitting- pt admits she has been doing this for years Chronic obstructive pulmonary disease 01/05/2017 Chronic rhinitis 01/05/2017 Nocturnal hypoxemia 01/05/2017 Pulmonary nodule 01/05/2017 Overview (02/20/2024): 2016, 9 mm densely calcified nodule Right middle lobe Hypercholesterolemia 04/21/2016 Overview (02/20/2024): Last Assessment & Plan: Patient's last LDL cholesterol was 103. This is at goal. Continue with pravastatin 40 mg once a day. Osteopenia 04/21/2016 Encounters Date Type Department Care Team Description 06/09/2024 Telephone [facility] [address] [place] [address] Benitez Mills MD flecainide (TAMBOCOR) 50 mg tablet (Headache when lying down ) 06/05/2024 11:10 AM EDT Consult [facility] [address] [place] [address] Benitez Mills MD Coronary artery disease involving samish coronary artery of samish heart without angina pectoris (Primary Dx); PVC (premature ventricular contraction); Nonrheumatic aortic valve stenosis; Primary hypertension; Multiple premature ventricular complexes 05/08/2024 2:30 PM EST Ancillary Procedure [facility] [address] [place] [address] Bradycardia 05/01/2024 2:00 PM EST Office Visit [facility] [address] [place] [address] Dhiraj Mccalin MD Nonrheumatic aortic valve stenosis (Primary Dx); S/P TAVR (transcatheter aortic valve replacement); Primary hypertension; Bradycardia 03/20/2024 Telephone [facility] - [address] [place] [address] Dhiraj Mcclain MD New Med Request from Last 3 Months Immunizations Name Administration Dates Next Due Influenza trivalent, 0.5mL ( Fluad) 65yo and older 12/01/2020,12/02/2018,01/05/2017 Influenza, Unspecified 10/29/2022,12/14/2021 Pneumococcal conjugate 20 va lent (Prevnar 20, PCV 20) 2mo and older 10/29/2022 Surgical History Surgery Date Site/Laterality Comments CATARACT EXTRACTION PROCEDURE: HISTORICAL CATARACT REMOVAL UPPER GASTROINTESTINAL ENDOSCOPY 08/26/2013 PROCEDURE: [place] UPPER GI ENDOSCOPY PERFORMED; COMMENT: mild reactive gastropathy COLONOSCOPY 05/03/2006 PROCEDURE: HISTORICAL COLONOSCOPY; COMMENT: Diverticulosis, Internal hemorrhoids. Repeat 5 yrs. No path report received UPPER GASTROINTESTINAL ENDOSCOPY 05/03/2006 PROCEDURE: [place] UPPER GI ENDOSCOPY PERFORMED; COMMENT: Unremarkable COLONOSCOPY 10/24/2010 PROCEDURE: HISTORICAL COLONOSCOPY; COMMENT: Diverticulosis. No path report received UPPER GASTROINTESTINAL ENDOSCOPY 10/24/2010 PROCEDURE: [place] UPPER GI ENDOSCOPY PERFORMED; COMMENT: unremarkable Medical History Medical History Date Comments Chronic obstructive pulmonar y disease (CMS/HCC) 01/05/2017 DX:Chronic obstructive pulmo nary disease (HCC) Chronic rhinitis 01/05/2017 DX:Chronic rhin itis Hypoxia 01/05/2017 DX:Hypoxia Osteopenia 04/21/2016 DX:Osteopenia CAD (coronary artery disease) 05/28/2018 DX :CAD (coronary artery disease) Osteoarthritis 05/28/2018 DX:Osteoarthriti s; COMMENT: Thoracic spine Diverticulosis 05/28/2018 DX:Diverticulosi s Hypertension 05/28/2018 DX:Hypertension Gastropathy 05/28/2018 DX:Gastropathy; COMMENT: 2013 mild reactive Gout 05/28/2018 DX:Gout Actinic keratosis 05/28/2018 DX:Actinic ker atosis Murmur 05/28/2018 DX:Murmur Substance abuse 05/28/2018 DX:Substance abu se (HCC); COMMENT: 12/2017 Alcohol -binge drinking weekeds 1 bottle wine/sitting- pt admits she has been doing this for years 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 DX:Right internal carotid artery aneurysm; COMMENT: 04/2016, 4.4 x 4.0 x 4.5 mm partially thrombosed partially calcified supraclinoid internal carotid artery aneurysm Pulmonary nodule 01/05/2017 DX:Pulmonary no dule; COMMENT: 2015, 9 mm densely calcified nodule Right middle lobe Hypercholesterolemia 04/21/2016 DX:Hypercho lesterolemia Depression 01/05/2017 DX:Depression Kidney stone DX:Kidney stone MOLLY (obstructive sleep apnea) Family History Medical History Relation Name Comments Coronary artery disease Brother Breast cancer Daughter 1 Gabbi age 51 Coronary artery disease Father Other: Other Mother Hiatal hernia, GERD Relation Name Status Comments Brother Daughter 1 Gabbi Daughter 2 Angelica Alive Father Mother Son Jono Alive Social History Tobacco Use Types Packs/Day Years Used Date Smoking Tobacco: Former Cigarettes Q uit: 03/19/1985 Smokeless Tobacco: Never Alcohol Use Standard Drinks/Week Comments Yes 0 (1 standard drink = 0.6 oz pur e alcohol) Comments Unknown Sex and Gender Information Value Date Recorded Sex Assigned at Not on file Legal Sex Female 12:11 PM EST Gender Identity Not on file Sexual Orientation Not on file Obstetrics History Last Filed Vital Signs Vital Sign Reading Time Taken Comments Blood Pressure 160/70 06/05/2024 10:59 AM EDT Pulse 53 06/05/2024 10:59 AM EDT Temperature - - Respiratory Rate - - Oxygen Saturation 92% 06/05/2024 10:59 AM EDT Inhaled Oxygen Concentration - - Weight 122 kg (270 lb) 06/05/2024 10:59 AM EDT Height 175.3 cm (5' 9 ) 06/05/2024 10:59 AM EDT Body Mass Index 39.87 06/05/2024 10:59 AM EDT Plan of Treatment Upcoming Encounters Date Type Department Care Team (Late st Contact Info) Description 06/16/2024 11:30 AM EDT Ancillary Procedure [facility] - [address] [place] [address] 07/16/2024 9:20 AM EDT Office Visit [facility] [address] [place] [address] Dhiraj Mcclain MD [address] [place] [address] [place] [address] 12/01/2024 2:30 PM EDT Office Visit Internal Medicine - [place] [address] [facility] [address] [place] [id number] Pk Mclean MD [address] [facility] [address] [place] [address] Health Maintenance Due Date Last Done Comments DTaP,Tdap,and Td Vaccines (1 - Tdap) 1954 Zoster Vaccines (1 of 2) 1954 Depression Screening 02/25/2022 Falls Risk Assessment 02/25/2022 Medicare Annual Wellness Visit 02/25/2022 Social Influencers of Health Screening 02/25/2022 Hypertension/CHF/CAD Annual BMP Blood Test 11/19/2024 11/20/2023, 11/20/2023, 10/23/2023 Osteoporosis Screening (Bone Density Screening) 02/27/2028 02/26/2018 Cholesterol Screening (Lipid Panel) 11/19/2028 11/20/2023, 11/20/2023 Pneumococcal Vaccine: 50+ Years Completed 10/29/2022 RSV Immunization Patients 60+ Years Old Completed 01/24/2023 COVID-19 Vaccine Completed 11/21/2023, 01/2023, 01/16/2022, Additional history exists Influenza Vaccine Completed 11/21/2023, , 12/14/2021, Additional history exists HIB Vaccines Aged Out No longer eligi ble based on patient's age to complete this topic HPV Vaccines Aged Out No longer eligi ble based on patient's age to complete this topic Hepatitis A Vaccines Aged Out No long er eligible based on patient's age to complete this topic Hepatitis B Vaccines Aged Out No long er eligible based on patient's age to complete this topic IPV Vaccines Aged Out No longer eligi ble based on patient's age to complete this topic MMR Vaccines Aged Out No longer eligi ble based on patient's age to complete this topic Meningococcal ACWY Vaccine Aged Out N o longer eligible based on patient's age to complete this topic Meningococcal B Vacine Aged Out No lo nger eligible based on patient's age to complete this topic RSV Immunization Patients Under 20 months Aged Out No longer eligible based on patient's age to complete this topic Varicella Vaccines Aged Out No longer eligible based on patient's age to complete this topic Procedures Procedure Name Priority Date/Time Associated Diagnosis Comments ECG 12-LEAD Routine 06/05/2024 11:39 AM EDT Coronary artery disease involving samish coronary artery of samish heart without angina pectoris CARDIAC HOLTER MONITOR (REPORT GENERATED IN HOUSE) Routine 05/08/2024 11:05 AM EST Bradycardia ECG 12-LEAD Routine 05/01/2024 2:02 PM EST S/P TAVR (transcatheter aortic valve replacement) Primary hypertension ANNUAL BMP BLOOD TEST Routine 11/20/2023 LIPID PANEL Routine 11/20/2023 [facility] DEXA AXIAL SKELETON Routine 02/26/2018 8:20 AM EST Encounter for screening for osteoporosis from Last 3 Months or Most Recently Relevant to Health Maintenance Results * ECG 12 lead (06/05/2024 11:39 AM EDT) Only the most recent of2 resultswithin the time period is included. Ventricular Rate ECG 90 BPM GEMUSE Atrial Rate 90 BPM GEMUSE P-R Interval 160 ms GEMUSE QRS Duration 78 ms GEMUSE Q-T Interval 372 ms GEMUSE QTc 455 ms GEMUSE P Wave [place] 77 degrees GEMUSE R [place] 86 degrees GEMUSE T [place] 78 degrees GEMUSE ECG Interpretation Sinus rhythm with frequent Premature ventricular complexes Otherwise normal ECG When compared with ECG of 01-MAY-2024 14:02, No significant change was found Confirmed by Sonali MILLS JOHN ([id number]) on 06/05/2024 11:52:02 AM GEMUSE 06/05/2024 11:1 1 AM EDT 06/05/2024 11:52 AM EDT Benitez Mills MD ECG ORDERABLES Edited Result - Final GEMUSE * CARDIAC HOLTER MONITOR (REPORT GENERATED IN HOUSE) (05/08/2024 11:05 AM EST) Anatomical Region Laterality Modality Cardiac Diagnost ic Narrative 05/13/2024 4:50 PM EST [facility] DIAGNOSTIC TESTING DEPARTMENT [address] [place] [address], [address] [address] TEL: FAX: Type of Test: 24 Hour Holter Monitor Date of Test: 05/08/2024 Ordering Provider: Dhiraj Mcclain MD Reason for Test: Bradycardia, PVC's Impression: ?? 1: Normal Sinus Rhythm. 2: Rare PACs. 3: Frequent PVCs, couplets and ventricular bigeminy. Occasional triplets and ventricular trigeminy. PVC [place] was 39.1%. 4: No significant pause noted, longest R-R was 0.9 second at 1:44 AM. 5: Diary returned with no symptoms noted. Result [facility] Dhiraj Mcclain MD CV CARDIAC SERVICES PROCEDURES Final Result * Annual BMP Blood Test (11/20/2023) Pathologist [facility] Annual BMP Blood Test abstracted Result [facility] Historical Provider HEALTH MAINTENANCE Final Result * (ABNORMAL) Lipid panel (11/20/2023) Pathologist [facility] LDL/HDL Ratio 4 0 - 4 Triglycerides 196(A) 0 - 150 mg/dL Cholesterol 206(A) 0 - 200 mg/dL HDL 53 >=40 mg/dL LDL Cholesterol 114(A) 0 - 100 mg/dL Blood Venous blood specimen / Unknown Result [facility] Historical Provider LAB BLOOD ORDERABLES Amanda l Result * CHRIS DEXA AXIAL SKELETON (02/26/2018 8:20 AM EST) Anatomical Region Laterality Modality Mammography 02/25/2018 2:01 PM EST Narrative 02/26/2018 8:20 AM EST [facility] Diagnostic Imaging Department [address] [place] [id number] Patient: ??GEM VERA ?/Age/Sex: 1935 - Unit#: ??[id number] ? Location/Status: ??SPDIMAM/REG CLI ? Mnemonic/Ordering Site: ??MAMDEXAAX/SPMAM Ordering Physician: ??GERARDO DAWSON MD [facility] Dexa Axial Skeleton - 02/25/18 - 1920 HISTORY: ??The patient is an 82-year-old postmenopausal female with clinical concern for metabolic bone disease. FINDINGS: ??Dual energy x-ray absorptiometry of the lumbar spine and femurs is performed. The mean bone mineral density at L3-4 is 0.943 gm/cm2 which is 79% of that of young normals and 84% of that of age matched controls. This yields a T- score of -2.1 and a Z-score of -1.5 which is diagnostic of osteopenia. The mean bone mineral density of the femurs bilaterally is 0.973 gm/cm2 which is 97% of that of young normals and 113% of that of age matched controls. ??This yields a T-score of -0.3 and a Z-score of 0.9 and there is therefore no evidence of osteoporosis or osteopenia here. However, the T-score of the right femoral neck is -1.5 which is diagnostic of osteopenia. IMPRESSION: 1. Osteopenia. ??There has been a decrease of 3.2% in bone mineral density in the lumbar spine since the prior examination of 08/17/2011. ??There has been an increase of 1.6% in bone mineral density in the right femur and an increase of 5.7% in bone mineral density in the left femur. 2. FRAX analysis yields a 10-year probability of major osteoporotic fracture of 21.0% and a 10-year probability of hip fracture of 11.5%. Code 49865 Dictating Physician: ??VICENTE KENDALL MD Electronically Signed by: ??VICENTE KENDALL MD Dic Date/Time: ??02/26/18818 Sign date/Time: ??02/26/18819 Procedure Note Vicente Kendall MD - 03/07/2022 [facility] Diagnostic Imaging Department [address] [place] [address] Patient: GEM VERA /Age/Sex: 1935 - 82 - F Unit#: [id number] Location/Status: [facility] Mnemonic/Ordering Site: MAMDEXAAX/SPMAM Ordering Physician: GERARDO DAWSON MD Chris Dexa Axial Skeleton - 02/25/18 - 1434 HISTORY: The patient is an 82-year-old postmenopausal female withclinical concern for metabolic bone disease. FINDINGS: Dual energy x-ray absorptiometry of the lumbar spine and femursis performed. The mean bone mineral density at L3-4 is 0.943 gm/cm2 which is79% of that of young normals and 84% of that of age matched controls. This yieldsa T- score of -2.1 and a Z-score of -1.5 which is diagnostic of osteopenia. The mean bone mineral density of the femurs bilaterally is 0.973 gm/ft8krmns is 97% of that of young normals and 113% of that of age matched controls.This yields a T-score of -0.3 and a Z-score of 0.9 and there is therefore noevidence of osteoporosis or osteopenia here. However, the T-score of the rightfemoral neck is -1.5 which is diagnostic of osteopenia. IMPRESSION: 1. Osteopenia. There has been a decrease of 3.2% in bone mineral densityin the lumbar spine since the prior examination of 08/17/2011. There has beenan increase of 1.6% in bone mineral density in the right femur and anincrease of 5.7% in bone mineral density in the left femur. 2. FRAX analysis yields a 10-year probability of major osteoporoticfracture of 21.0% and a 10-year probability of hip fracture of 11.5%. Code 21578 Dictating Physician: VICENTE KENDALL MD Electronically Signed by: VICENTE KENDALL MD Dic Date/Time: 02/26/18818 Sign date/Time: 02/26/18819 Gerardo Dawson MD IM BI PROCEDURES Final Result from Last 3 Months or Most Recently Relevant to Health Maintenance Insurance [employer] MEDICARE ADVANTAGE Care Teams Outside Machinist Supervisor Relationship Specialty Start Date End Date Pk Mclean MD [address] [place] [address] PCP - General 03/22/22
--- OUTSIDE RECORDS SUMMARY | 2024-06-10 17:27 | XMS_ITS | Encounter Summary ---
Author Organization [facility] Address [address] [place] [address] Care Team Providers Care Monitor Tech Name Role Phone Lisette Denise MD Primary Care Provider U [place] MD Unavailable Unavailable Eliezer Nolen MD Unavailable Unavailable China Cotton NP Unavailable [phone] Pk Mclean MD Primary Care Provider Dhiraj Mcclain MD Unavailable [phone] Encounter Details Date Type Department Care Team Description 04/15/2019 Plastering Supervisor Report Medical Records [address] [place] [address] Tono Gonzalez MD Social History Tobacco Use Types Packs/Day [...] often do you attend chur ch or jehovah's witness services? More than 4 times per year 07/28/2021 Do you belong to any clubs o r organizations such as nondenominational groups, unions, fraternal or athletic groups, or [...] on filedocumented in this encounter Care Teams Monitor Tech Relationship Specialty Start Date End Date Lisette Denise MD PCP - General Internal Medicine 05/06/18 Pk Mclean MD PCP - General Internal Medicine 03/22/22 Ta Davidson MD Specialist Urology 07/28/21 Eliezer Nolen MD Specialist Rheumatology 07/28/21 China Cotton NP Nurse Practitioner Cardiology 10/04/21 Dhiraj Mcclain MD Specialist Cardiology 08/17/23 documented as of this encounter
--- OUTSIDE RECORDS SUMMARY | 2024-06-10 17:27 | XMS_ITS | Encounter Summary ---
Author Organization [facility] Address [address] [place] [address] Care Team Providers Care Relations Specialist Name Role Phone Ta Davidson MD Unavailable Unavailable Eliezer Nolen MD Unavailable Unavailable China Cotton NP Unavailable [phone] Pk Mclean MD Primary Care Provider [phone] Dhiraj Mcclain MD Unavailable [phone] Encounter Details Date Type Department Care Team Description 01/22/2023 Installer Interior Assemblies Report Medical Records [address] [place] [address] Tono Gonzalez MD Social History Tobacco Use [...] Never 07/28/2021 How often do you attend [facility] or yarsani services? More than 4 times per year 07/28/2021 Do you belong to any clubs o r organizations such as druze groups, unions, fraternal or athletic groups, or [...] on filedocumented in this encounter Care Teams Relations Specialist Relationship Specialty Start Date End Date Pk Mclean MD PCP - General Internal Medicine 03/22/22 Ta Davidson MD Specialist Urology 07/28/21 Eliezer Nolen MD Specialist Rheumatology 07/28/21 China Cotton NP Nurse Practitioner Cardiology 10/04/21 Dhiraj Mcclain MD Specialist Cardiology 08/17/23 documented as of this encounter
--- OUTSIDE RECORDS SUMMARY | 2024-06-10 17:27 | XMS_ITS | Encounter Summary ---
Author Organization [facility] Address [address] [place] [address] Care Team Providers Care Digital Commentator Name Role Phone Ta Davidson MD Unavailable Unavailable Eliezer Nolen MD Unavailable Unavailable China Cotton NP Unavailable Pk Mclean MD Primary Care Provider [phone] Dhiraj Mcclain MD Unavailable [phone] Reason for Visit * Reason Onset Date Comments Hospital Procedure 05/11/2023 L heart cath ? PCI Encounter Details Date Type Department Care Team Description 05/11/2023 Telephone Cardio PVC POC [address] [place] [address] China Cotton, BETHANY [address] [place] [address] [place] [address] Hospital Procedure (L heart cath ? PCI) [...] How often do you attend chur or latter-day services? More than 4 times per year 07/28/2021 Do you belong to any clubs o r organizations such as baptism groups, unions, fraAyla or athletic groups, or school groups? No [...] place to sleep or slept in a skilled nursing (including now)? No 07/28/2021 Sex Assigned at Date Recorded Not on file Job Start Date Occupation Industry Not on file Not on file Not on file documented as of this encounter Miscellaneous Notes * Telephone Encounter - Luisa Carmen C.M.A. - 05/11/2023 9:57 AM EST I faxed request to [facility] collaborative physician to book L heart cath ? PCI 05/21/[address] Mcclain. documented in this encounter Plan of Treatment Not on file documented as of this encounter Visit Diagnoses Not on filedocumented in this encounter Care Teams Digital Commentator Relationship Specialty Start Date End Date Pk Mclean MD PCP - General Internal Medicine 03/22/22 Ta Davidson MD Specialist Urology 07/28/21 Eliezer Nolen MD Specialist Rheumatology 07/28/21 China Cotton NP Nurse Practitioner Cardiology 10/04/21 Dhiraj Mcclain MD Specialist Cardiology 08/17/23 documented as of this encounter
--- OUTSIDE RECORDS SUMMARY | 2024-06-10 17:27 | XMS_ITS | Encounter Summary ---
Author Organization [facility] Address [address] [place] [address] Care Team Providers Care Assistant Track Coach Name Role Phone Lisette Denise MD Primary Care Provider U Ta Grande MD Unavailable Unavailable Eliezer Nolen MD Unavailable Unavailable China Cotton NP Unavailable [phone] Pk Mclean MD Primary Care Provider [phone] Dhiraj Mcclain MD Unavailable [phone] Encounter Details Date Type Department Care Team Description 12/26/2019 Pt. Non Urgent Medical Question Adult Medicine - [address] [place] [address] Lisette Denise MD Social History Tobacco Use Types Packs/Day [...] How often do you attend chur or spiritism services? More than 4 times per year 07/28/2021 Do you belong to any clubs o r organizations such as gnosticist groups, unions, fraternal or athletic groups, or [...] file Not on file Not on file COVID-19 Exposure Response Date Recorded In the last month, have you been in contact with someone who was confirmed or suspected to have Coronavirus / COVID-19? No / Unsure 12/11/2019 1:49 PM EDT documented as of this encounter Progress Notes * Mira Stanley M.A. - 12/26/2019 11:42 AM EDTFrom: Thuy Vera To: Lisette Molina MD Sent: 12/26/2019 11:40 AM EDT Subject: bupropion dosage Nyla Lang suggested i start taking 2 a day instead of one (which i take with bkfst) when is thebest time to take the second ? before bedtime or after dinner? documented in this encounter Plan of Treatment Not on file documented as of this encounter Visit Diagnoses Not on filedocumented in this encounter Care Teams Assistant Track Coach Relationship Specialty Start Date End Date Lisette Denise MD PCP - General Internal Medicine 05/06/18 Pk Mclean MD PCP - General Internal Medicine 03/22/22 Ta Davidson MD Specialist Urology 07/28/21 Eliezer Nolen MD Specialist Rheumatology 07/28/21 China Cotton NP Nurse Practitioner Cardiology 10/04/21 Dhiraj Mcclain MD Specialist Cardiology 08/17/23 documented as of this encounter
--- OUTSIDE RECORDS SUMMARY | 2024-06-10 17:27 | XMS_ITS | Data Portability ---
Author Organization [place] [facility], [facility] Address [address] [place] [phone] Care Team Providers Care Meat Sales And Storage Manager Name Role Phone JIMMIE CLAYTON Primary Care Provider Assessment Encounter Date Assessment Date Assessment LastModified by Organization Details LastModified Time 10/17/2023 10/17/2023 88-year-old female presents for evaluation of nasal congestion. Anterior rhinoscopy shows nonobstructive septal deviation to the right and a high mid septum spur on the left which is also nonobstructive. Patient is concerned that there is further blockage in her sinuses and would really like a CT scan today which was performed. No sign of sinus disease. Overall reassurance was provided. Though she does have a septal deviation it does not seem to be obstructive enough to impede her use of nasal cannula. Furthermore, given her heart and lung disease she would likely not be a good candidate for septoplasty. Will continue to use Lorain gel for occasional epistaxis. Otherwise she may follow-up as needed. Not available 10/17/2023 11:37:22 Plan of Treatment Reminders Order Date Submit Date Provider Last Modified By Organization Details Last Modified Time Details Appointments None recorded . Lab None recorded . Referral None recorded . Procedures None recorded . Surgeries None recorded . Imaging CT, sinuses, w/o contrast 2023 024 konstantin [facility], [address] [place] [address], [phone], 11:13:38 Medication Orders None recorded . Patient TargetsNo targets recorded. Patient InstructionsNo instructions recorded. Reason for Referral None Reported. Results Created Date Observation Date Name Description Value Unit Range Abnormal Flag Note LastModifiedBy Organization Detail LastModifiedTime 10/17/19 CT, sinus es, w/o contr ast No observ ation record ed. [facility] [address] [place], [address], 10/17/2023 11:05:33 10/25/19 24 10/17/2023 CT, sinus es, w/o contr ast No observ ation record ed. [facility] [address] [facility] [address], [place], [address], 10/25/2023 07:43:17 10/25/19 24 10/17/2023 CT, sinus es, w/o contr ast No observ ation record ed. [facility] [address] [facility] [address], [place], [address], 10/25/2023 07:43:17 11/06/19 24 07/03/2018 imagi ng/di agnos tic resul t No observ ation record ed. [email or web address] Not Available 15:58:15 Result Notes None recorded. Problems Name Problem SNOMED Code Status Onset Date Resolution Date Notes Provider Name and Address Organization Details Recorded Time Nasal congestio n 25307720 Active 2018 Nasal congestion ; Note: Date Diagnosed: 06/21/2018 4:15 PM (R09.81) Not Available [facility] 4 03:19:58 Deviated nasal septum 750947827 Active 2018 Deviated nasal septum; Note: Date Diagnosed: 06/17/2014 3:58 PM (470) ; Start Date : 06/17/2014 Deviated nasal septum; Note: Date Diagnosed: 06/21/2018 3:53 PM (J34.2) Not Available [facility] 4 03:19:57 Chronic rhinitis 75851318 Active 2018 Chronic rhinitis; Note: Date Diagnosed: 06/21/2018 3:53 PM (J31.0) Not Available [facility] 4 03:19:57 [place]urban ce of salivary secretion 22946014 Active 2018 Xerostomia ; Note: Date Diagnosed: 06/21/2018 4:15 PM (K11.7) Not Available [facility] 4 03:19:58 Chronic sinusitis 79566590 Active 2014 Chronic sinusitis; Note: Date Diagnosed: 05/27/2014 12:10 PM (473.9) Not Available [facility] 4 03:19:57 Chronic obstructi ve pulmonary disease 18119742 Active 2018 Chronic obstructiv e pulmonary disease, unspecifie d; Note: Date Diagnosed: 06/21/2018 4:15 PM (J44.9) Not Available [facility] 4 03:19:57 Problem Notes None recorded. Procedures Surgical History None recorded. Imaging Results Imaging Date Name Status LastModified by [facility] Details LastModified Time 10/17/2023 CT, sinuses, w/o contrast completed [facility] [address], [address], 10/17/2023 11:05:33 10/17/2023 CT, sinuses, w/o contrast completed [facility] [address], [address], 10/25/2023 07:43:17 10/17/2023 CT, sinuses, w/o contrast completed [facility] [address], [address], 10/25/2023 07:43:17 07/03/2018 imaging/diagn ostic result completed [email or web address] Information not available 11/06/2023 15:58:15 Procedure Notes None recorded. Medical Equipment None Reported. Allergies Allergen ID Allergen Name Allergen Category Reaction Reaction Severity Criticality Documentation Date Start Date Code Code System Note Provider Name and Address Organization Details Recorded Time 85740 ciproflox acin hydrochlo ride medicatio n other Not available Not available 07/31/2023 71423 RxNorm React ion: unkno wn, unspe cifie d;; Not Available [facility] 00:48:43 Medications Name Sig Start Date Stop Date Status Note LastModified by Organization Details LastModified Time Augmentin 875 mg-125 mg tablet 06/17 completed Medicati on ID: [id number] Du ration Value: 14 Prescri bed By Name: BAYRON Sawyer nd Name: Augmenti n Send Method: E-Prescr ibed Sub s Allowed: subs OK Speci al Instruct ion: 1 po bid for 14 days Med icationG enericNa me: Augmenti n Not Available Not Available Not Available pilocarpi ne 5 mg tablet TAKE 1 TABLET BY MOUTH AT BEDTIME FOR 360 DAYS. active Not Available Not Available No t Available pravastat in 40 mg tablet TAKE 1 TABLET BY MOUTH EVERY DAY active Not Available Not Available No t Available famotidin e 40 mg tablet TAKE ONE TABLET BY MOUTH TWICE A DAY (NEED APPOINTM ENT FOR FURTHER REFILLS) 10/16 completed Not Available Not Available Not Available prednison e 20 mg tablet 2 tablet by mouth 10/16 completed Medicati on ID: [id number] Du ration Value: 5 Prescri bed By Name: BAYRON Sawyer nd Name: predniso ne Send Method: E-Prescr ibed Sub s Allowed: subs OK Medic ationGen ericName : predniso ne Medic ation ID: [id number] Du ration Value: 5 Prescri bed By Name: BAYRON Sawyer nd Name: predniso ne Send Method: E-Prescr ibed Sub s Allowed: subs OK Medic ationGen ericName : predniso ne Not Available Not Available Not Available allopurin ol 100 mg tablet TAKE 1 TABLET BY MOUTH TWICE A DAY active Not Available Not Available No t Available omeprazol e 40 mg capsule,d elayed release TAKE 1 CAPSULE BY MOUTH EVERY DAY FOR 30 DAYS active Not Available Not Available No t Available aspirin 81 mg tablet,de layed release TAKE 1 TABLET BY MOUTH EVERY DAY active Not Available Not Available No t Available amoxicill in 875 mg tablet TAKE 1 TABLET BY MOUTH TWO TIMES A DAY FOR 1 DAY 10/16 completed Not Available Not Available Not Available cephalexi n 500 mg capsule TAKE 1 CAPSULE BY MOUTH TWICE A DAY 10/16 completed Not Available Not Available Not Available metoprolo l tartrate 50 mg tablet 10/16 completed Medicati on ID: [id number] Br and Name: metoprol ol tartrate Send Method: E-Prescr ibed Sub s Allowed: subs OK Medic ationGen ericName : metoprol ol tartrate Medicat ion ID: [id number] Br and Name: metoprol ol tartrate Send Method: E-Prescr ibed Sub s Allowed: subs OK Medic ationGen ericName : metoprol ol tartrate Not Available Not Available Not Available folic acid 1 mg tablet TAKE 1 TABLET BY MOUTH EVERY DAY 10/16 completed Not Available Not Available Not Available metoprolo l succinate ER 25 mg tablet,ex tended release 24 hr TAKE 1 TABLET BY MOUTH EVERY DAY active Not Available Not Available No t Available ondansetr on 4 mg disintegr ating tablet TAKE 1 TABLET ORALLY EVERY 8 HOURS NEEDED FOR NAUSEA AND VOMITING 10/16 completed Not Available Not Available Not Available fluticaso ne propionat e 50 mcg/actua tion nasal spray,aline pension 2 puff into both nostrils once a day 2018 active Medicati on ID: [id number] D uration Value: 30 Prescri bed By Name: BAYRON Ennis nd Name: fluticas one propiona te Send Method: E-Prescr ibed Sub s Allowed: subs OK Medic ationGen ericName : fluticas one propiona te Not Available Not Available Not Available ipratropi um bromide 21 mcg (0.03 %) nasal spray 1 spray into both nostrils 08/13 completed Medicati on ID: [id number] P rescribe d By Name: Sonali De La O nd Name: ipratrop ium bromide Send Method: E-Prescr ibed Sub s Allowed: subs OK Medic ationGen ericName : ipratrop ium bromide Not Available Not Available Not Available Livalo 2 mg tablet 10/16 completed Medicati on ID: [id number] D uration Value: 30 Brand Name: Livalo S end Method: E-Prescr ibed Sub s Allowed: subs OK Medic ationGen ericName : Livalo M edicatio n ID: [id number] D uration Value: 30 Brand Name: Livalo S end Method: E-Prescr ibed Sub s Allowed: subs OK Medic ationGen ericName : Livalo Not Available Not Available Not Available Anoro Ellipta 62.5 mcg-25 mcg/actua tion powder for inhalatio n active Not Available Not Available Not Available Spiriva Respimat 2.5 mcg/actua tion solution for inhalatio n 10/16 completed Medicati on ID: [id number] D uration Value: 90 Brand Name: Spiriva Respimat Send Method: E-Prescr ibed Sub s Allowed: subs OK Medic ationGen ericName : Spiriva Respimat Medicat ion ID: [id number] D uration Value: 90 Brand Name: Spiriva Respimat Send Method: E-Prescr ibed Sub s Allowed: subs OK Medic ationGen ericName : Spiriva Respimat Not Available Not Available Not Available Vitals None Recorded Social History None recorded. Functional Status None recorded. Mental Status None recorded. Family History Nothing Reported. Medical History Condition Response Emphysema Y Hypertension Y High Cholesterol Y Gynecological HistoryNo gynecological history recorded. Obstetrics History GPAL:G 0 P 0 0 0 0 Past Encounters Encounter ID Performer Location Encounter Start Date Encounter Closed Date Diagnosis/Indication Diagnosis SNOMED-CT Code Diagnosis ICD10 Code Diagnosis Note [id number] ANSON HUI PA-C [facility] [address] [address] 10/17/2023 10:02:38 10/17/2023 11:13:38 Chronic rhinitis 78378911 J31.0 Nasal congestion 0990811 0 R09.81 Health Concerns Section Related Observation LastModified by Organization Detai ls LastModified Time None Recorded Concern Status LastModified by Organization Details LastModified Time None Recorded Advance Directives Directive None Recorded Payers None recorded. Notes Date Note Type Note Provider Name and Address Organization Details Recorded Time 10/17/2023 text/html 88-year-old fema sandhya presents for evaluation of nasal congestion. This has been a longstanding issue. She wonders if it is affecting her ability to use her nasal cannula which she uses as needed for shortness of breath. She has COPD and several heart issues. She has postnasal drip and occasional headache but no sinus symptoms. Smell and taste are intact. Occasionally she has bloody noses for which she uses Lorain. ANSON HUI PA-C [address] [place] [address], [place], [phone], [facility] 10/17/2023 11:38:16 OBGyn Episode No OBEpisode recorded.
--- OUTSIDE RECORDS SUMMARY | 2024-06-10 17:27 | XMS_ITS | Encounter Summary ---
Author Organization [facility] Address [address] [place] [address] Care Team Providers Care Motion Picture Camera Lens Technician Name Role Phone Pk Mclean MD Primary Care Provider [phone] Reason for Referral * Cardiac Stress Testing (Routine) - Authorized Specialty Diagnoses / Procedures Referred By Contac t Referred To Contact Cardiology Diagnoses PVC (premature ventricular contraction) Procedures Cardiac holter monitor (<= 48 hours) NC ECG EXTERNAL UP TO 48 HOURS RECORDING NC ECG EXTERNAL < 48 HOURS CONTINUOUS RECORDING/STORAGE R&I BY A PHYS/QHP NC EXTERNAL ECG UP TO 48 HRS INCL RECORDING SCANNING ANLYS W REPORT Benitez Mills MD [address] [place] [address] Phone: tel: fax: [facility] Referral ID Status Reason Start Date Expiration Date V isits Requested Visits Authorized [id number] Authorized 06/05/2024 06/05/2025 1 1 Reason for Visit * Reason Comments Follow-up EP Eval Encounter Details Date Type Department Care Team (Late st Contact Info) Description 06/05/2024 11:10 AM EDT Consult [facility] - [address] [place] [id number] Benitez Mills MD [address] [place] [address] Coronary artery disease involving [place] coronary artery of [place] heart without angina pectoris (Primary Dx); PVC (premature ventricular contraction); Nonrheumatic aortic valve stenosis; Primary hypertension; Multiple premature ventricular complexes Social History Tobacco Use Types Packs/Day Years [...] on file documented as of this encounter Last Filed Vital Signs Vital Sign Reading [...] Mass Index 39.87 06/05/2024 10:59 AM EDT documented in this encounter Ordered Prescriptions Prescription Sig Dispense Quantity Refills Last Filled Start Date End Date flecainide (TAMBOCOR) 50 mg tablet Take 1 tablet (50 mg total) by mouth 2 (two) times a day. 60 each 11 06/05/2024 06/10/2024 documented in this encounter Progress Notes * Benitez Mills MD - 06/05/2024 11:49 AM EDTAssociated Problem(s): Primary hypertension Systolic blood pressure was elevated today but she says her home readings have been better. Will continue to monitor, continue efforts at weight loss and a low-sodium diet. * Benitez Mills MD - 06/05/2024 11:48 AM EDTAssociated Problem(s): Aortic valve stenosis Aortic stenosis status post TAVR. Continue follow up with Dr Mcclain. * Benitez Mills MD - 06/05/2024 11:48 AM EDTAssociated Problem(s): Multiple premature ventricular complexes This 88-year-old female with aortic stenosis status [...] for PVCs and given a normal left ventricularejection fraction and absence of coronary disease by angiogram she should be able to tolerate 50 mgtwice daily of flecainide quite well. I see no evidence of underlying conduction disease on her ECG. I went over the small risk of proarrhythmia and/or conduction disease advancement. She is in agreement to a trial of 50 mg twice daily and we will repeat a Holter monitor 1 to 2 weeks after startingthe new medication. I do not feel it [...] the positive findings on her workup overall. * Benitez Mills MD - 06/05/2024 11:10 AM EDT Dear Pk Mclean MD: Thank you for requesting cardiology consultation on your patient, Thuy Vera. As you know, thisis a delightful 88-year-old female with a history of aortic stenosis status post TAVR performed last August without complication. She had a normal LVEF by echocardiogram, very modest gradient through the prosthetic valve, and no coronary disease by previous angiogram. She does have underlying COPD and uses oxygen. She has well-controlled hypertension. She was noting heart rates in the 30s and 40s on her pulse ox monitor and was evaluated with a Holter monitor that showed a large burden of PVCs. The primary morphology suggests it is coming from the LV summit or LV outflow tract. There was no VT but frequent periods of ventricular bigeminy and she clearly has a pulse deficit on my exam today. She does notice the irregular rhythm but is not completely sure whether these are causing any of her symptoms. She feels lightheaded at times and has significant dyspnea likely primarily due to her COPD. Her twelve-lead ECG shows a very narrow QRS complex with a normal NC interval and normal QT interval. Recent electrolytes and renal function were normal. Multiple premature ventricular complexes This 88-year-old female with aortic stenosis status [...] for PVCs and given a normal left ventricularejection fraction and absence of coronary disease by angiogram she should be able to tolerate 50 mgtwice daily of flecainide quite well. I see no evidence of underlying conduction disease on her ECG. I went over the small risk of proarrhythmia and/or conduction disease advancement. She is in agreement to a trial of 50 mg twice daily and we will repeat a Holter monitor 1 to 2 weeks after startingthe new medication. I do not feel it [...] the positive findings on her workup overall. Aortic valve stenosis Aortic stenosis status post TAVR. Continue follow up with Dr Mcclain. Primary hypertension Systolic blood pressure was elevated today but she says her home readings have been better. Will continue to monitor, continue efforts at weight loss and a low-sodium diet. PAST MEDICAL HISTORY: Patient Active Problem List Diagnosis Date Noted Multiple premature ventricular complexes 06/05/2024 S/P TAVR (transcatheter aortic valve replacement) 05/01/2024 Class 2 severe obesity due to excess calories with serious comorbidity and body mass index (BMI) of36.0 to 36.9 in adult ([facility]) 02/20/2024 Coronary artery disease involving [place] coronary artery of [place] heart without angina pectoris 09/14/2023 Low vitamin D level 05/26/2022 Neuropathy 09/21/2020 Recurrent major depressive disorder, in partial remission ([facility]) 02/26/2019 Aortic valve stenosis 09/30/2018 Mild concentric left ventricular hypertrophy 09/30/2018 Actinic keratosis 05/28/2018 Diverticulosis 05/28/2018 Gastroesophageal reflux disease 05/28/2018 Gout 05/28/2018 Osteoarthritis 05/28/2018 Primary hypertension 05/28/2018 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 Substance abuse ([facility]) 05/28/2018 Chronic obstructive pulmonary disease ([facility]) 01/05/2017 Chronic rhinitis 01/05/2017 Nocturnal hypoxemia 01/05/2017 Pulmonary nodule 01/05/2017 Hypercholesterolemia 04/21/2016 Osteopenia 04/21/2016 SOCIAL HISTORY: Social History Tobacco Use Smoking status: Former Current packs/day: 0.00 Types: Cigarettes Quit date: 03/19/1985 Years since quittin.2 Smokeless tobacco: Never Substance Use Topics Alcohol use: Yes ACTIVE MEDICATIONS: Outpatient Medications Marked as Taking for the 06/05/24 encounter (Consult) with Benitez Mills MD Medication Sig Dispense Refill allopurinoL (ZYLOPRIM) 100 mg tablet Take 1 tablet (100 mg total) by mouth 1 (one) time each day. amoxicillin (AMOXIL) 500 mg capsule Take 4 tablets by mouth once 30-60 minutes prior to dental procedure 4 each 3 Anoro Ellipta 62.5-25 mcg/actuation inhaler Inhale 1 Puff into the lungs daily. aspirin 81 mg EC tablet Take 1 tablet (81 mg total) by mouth 1 (one) time each day. Oxygen Therapy (O2) gas Inhale 2 L into the lungs. [facility] pravastatin (PRAVACHOL) 40 mg tablet TAKE 1 TABLET BY MOUTH EVERY DAY 90 tablet 1 ALLERGIES: No Known Allergies PHYSICAL EXAM: Vitals: 06/05/24 1059 BP: (!) 160/70 BP Location: Left arm Patient Position: Sitting BP Cuff Size: Adult Pulse: 53 SpO2: 92% Weight: 122 kg (270 lb) Height: 1.753 m (69 ) APPEARANCE: Alert and in no acute distress EYES: PERRL, conjunctiva and sclera normal NECK: Neck supple, 2+ carotid pulses, No bruits. HEART: RRR with normal S1 and S2, no murmurs, no gallops, no JVD appreciated LUNG: clear to auscultation ABDOMEN: Bowel sounds normoactive, no bruits, soft, non-tender, without organomegaly or palpable masses, no abdominal bruits EXTREMITIES: Extremities warm and well perfused without clubbing, cyanosis, or edema NEURO: Awake, alert and oriented x 3, Cranial nerves II-XII grossly intact SKIN: Skin color, texture, turgor normal. No rashes or lesions. PSYCH: Mood and affect are appopriate. MSK: Moves all extremities ASSESSMENT/PLAN: Problem List Items Addressed This Visit Aortic valve stenosis Aortic stenosis status post TAVR. Continue follow up with Dr Mcclain. Relevant Medications flecainide (TAMBOCOR) 50 mg tablet Coronary artery disease involving [place] coronary artery of [place] heart without angina pectoris - Primary Relevant Medications flecainide (TAMBOCOR) 50 mg tablet Other Relevant Orders ECG 12 lead (Completed) Primary hypertension Systolic blood pressure was elevated today but she says her home readings have been better. Will continue to monitor, continue efforts at weight loss and a low-sodium diet. Multiple premature ventricular complexes This 88-year-old female with aortic stenosis status [...] for PVCs and given a normal left ventricularejection fraction and absence of coronary disease by angiogram she should be able to tolerate 50 mgtwice daily of flecainide quite well. I see no evidence of underlying conduction disease on her ECG. I went over the small risk of proarrhythmia and/or conduction disease advancement. She is in agreement to a trial of 50 mg twice daily and we will repeat a Holter monitor 1 to 2 weeks after startingthe new medication. I do not feel it [...] the positive findings on her workup overall. Relevant Medications flecainide (TAMBOCOR) 50 mg tablet Other Visit Diagnoses PVC (premature ventricular contraction) Relevant Medications flecainide (TAMBOCOR) 50 mg tablet Other Relevant Orders Cardiac holter monitor (<= 48 hours) Orders Placed This Encounter Procedures Cardiac holter monitor (<= 48 hours) ECG 12 lead The ANTHONY team will continue to co-manage this patient following the plan of care as established by my initial visit and as per AHA guidelines for ongoing management and surveillance of premature ventricular complexes, aortic stenosis, hypertension. . This will include medication titration, initiation of appropriate medications and further titration, and diagnostic studies to manage this disease process. Thank you for requesting cardiology consultation on this delightful patient. Sincerely, Cc: documented in this encounter Plan of Treatment Upcoming Encounters Date Type Department Care Team (Late st Contact Info) Description 06/16/2024 11:30 AM EDT Ancillary Procedure [facility] - [address] [place] [address] 07/16/2024 9:20 AM EDT Office Visit [facility] - Medical [facility] [address] [place] [address] Dhiraj Mcclain MD [facility] [address] [place] [address] 12/01/2024 2:30 PM EDT Office Visit Internal Medicine - [address] [place] [phone] Pk Mclean MD [address] [address] Scheduled Orders Name Type Priority Associated Diagnoses Orde r Schedule Cardiac holter monitor (<= 48 hours) Cardiac Services Routine PVC (premature ventricular contraction) 1 Occurrences starting 06/05/2024 until 06/05/2025 documented as of this encounter Procedures Procedure Name Priority Date/Time Associated Diagnosis Comments ECG 12-LEAD Routine 06/05/2024 11:39 AM EDT Coronary artery disease involving [place] coronary artery of [place] heart without angina pectoris documented in this encounter Results * ECG 12 lead (06/05/2024 11:39 AM EDT) Ventricular Rate ECG 90 BPM GEMUSE Atrial Rate 90 BPM GEMUSE P-R Interval 160 ms GEMUSE QRS Duration 78 ms GEMUSE Q-T Interval 372 ms GEMUSE QTc 455 ms GEMUSE P Wave [place] 77 degrees GEMUSE R [place] 86 degrees GEMUSE T [place] 78 degrees GEMUSE ECG Interpretation Sinus rhythm with frequent Premature ventricular complexes Otherwise normal ECG When compared with ECG of 01-MAY-2024 14:02, No significant change was found Confirmed by Sonali MILLS JOHN ([id number]) on 06/05/2024 11:52:02 AM GEMUSE 06/05/2024 11:1 1 AM EDT 06/05/2024 11:52 AM EDT us Benitez Mills MD ECG ORDERABLES Edited Result - Final GEMUSE documented in this encounter Visit Diagnoses Diagnosis Coronary artery disease involving [place] coronary artery of [place] heart without angina pectoris- Primary PVC (premature ventricular contraction) Other premature beats Nonrheumatic aortic valve stenosis Primary hypertension Unspecified essential hypertension Multiple premature ventricular complexes documented in this encounter Care Teams Motion Picture Camera Lens Technician Relationship Specialty Start Date End Date kP Mclean MD [address] [place] [address] PCP - General 03/22/22 documented as of this encounter
--- OUTSIDE RECORDS SUMMARY | 2024-06-10 17:27 | XMS_ITS | Clinical Summary ---
Author Organization [facility] Address [address] [place] [address] Care Team Providers Care Floorperson Name Role Phone Unavailable Primary Care Provider Unavailabl e Social History Tobacco Use Types Packs/Day Years Used Date Smoking Tobacco: Never Assessed Sex and Gender Information Value Date Recorded Sex Assigned at Not on file Gender Identity Not on file Sexual Orientation Not on file Plan of Treatment Health Maintenance Due Date Last Done Comments DTaP/Tdap/Td Vaccines (1 - Tdap) 1954 Pneumococcal Vaccines 50+ (1 of 1 - PCV) 09/26/1987 Zoster (Shingles) Vaccine (1 of 2) 09/26/1987 RSV Vaccine 60 years and old er and Patients (1 - 1-dose 75+ series) 2012 COVID-19 Vaccine ( - 2023-2 5 season) 2023 Hepatitis B Vaccines Aged Out No long er eligible based on patient's age to complete this topic
--- OUTSIDE RECORDS SUMMARY | 2024-06-10 17:27 | XMS_ITS | Encounter Summary ---
Author Organization [facility] Address [address] [place] [address] Care Team Providers Care Oracle Brm Developer Name Role Phone Lisette Denise MD Primary Care Provider U Ta Grande MD Unavailable Unavailable Eliezer Nolen MD Unavailable Unavailable China Cotton NP Unavailable [phone] Pk Mclean MD Primary Care Provider [phone] Dhiraj Mcclain MD Unavailable [phone] Reason for Visit * Reason Onset Date Comments Faxed Refill 04/01/2020 Encounter Details Date Type Department Care Team Description 04/01/2020 Refill Adult Medicine - [address] [address] Lisette Denise MD Faxed Refill Social History [...] How often do you attend [facility] or yazidism services? More than 4 times per year 07/28/2021 Do you belong to any clubs o r organizations such as zoroastrian groups, unions, fraternal or athletic groups, or [...] place to sleep or slept in a [facility] (including now)? No 07/28/2021 Sex Assigned at Date Recorded Not on file Job Start Date Occupation Industry Not on file Not on file Not on file documented as of this encounter Miscellaneous Notes * Telephone Encounter - Reji Junior NP - 04/01/2020 4:48 PM EST Approved * Telephone Encounter - nAgie Duran - 04/01/2020 4:14 PM EST New rx pended. Chiara 01/09/20. Lab Results Component Value Date NA 140 11/03/2019 K 4.4 11/03/2019 CO2 27 11/03/2019 CL 106 11/03/2019 BUN 12 11/03/2019 CREAT 0.70 11/03/2019 GLU 104 11/03/2019 CA 9.0 11/03/2019 GFR > 60 11/03/2019 * Telephone Encounter - Luisa Sun - 04/01/2020 4:12 PM EST Patient would like script to be: E-PRESCRIBED/FAXED TO PHARMACY WHEN WAS THE PATIENT'S LAST APPOINTMENT IN ADULT MEDICINE? 01/09/20 WHEN WAS THE LAST TIME THE PATIENT SAW THEIR PCP? 02/26/19 Does patient have an upcoming appointment? Yes 05/03/20 (THE MEDICATION REQUESTED IS ON THE MED LIST ABOVE) All of the medications requested were on the CURRENT MEDS list Did you check the Pharmacy information above?: YES Patient wants: 90 -day supply Is this a mail order prescription request ? YES If the refill is from a FAXED refill request what is the RX # listed on the fax? N/A Patients current insurance carrier is: Payor: [employer] / Plan: PPO $20 [place] [id number] / Product Type: POS [id number] Insurance ID #: [id number] documented in this encounter Plan of Treatment Not on file documented as of this encounter Visit Diagnoses Not on filedocumented in this encounter Care Teams Oracle Brm Developer Relationship Specialty Start Date End Date Lisette Denise MD PCP - General Internal Medicine 05/06/18 Pk Mclean MD PCP - General Internal Medicine 03/22/22 Ta Davidson MD Specialist Urology 07/28/21 Eliezer Nolen MD Specialist Rheumatology 07/28/21 China Cotton NP Nurse Practitioner Cardiology 10/04/21 Dhiraj Mcclain MD Specialist Cardiology 08/17/23 documented as of this encounter
--- OUTSIDE RECORDS SUMMARY | 2024-06-10 17:27 | XMS_ITS | Encounter Summary ---
Author Organization [facility] Address [address] [place] [address] Care Team Providers Care Electrician Shop Name Role Phone Ta Davidson MD Unavailable Unavailable Eliezer Nolen MD Unavailable Unavailable China Cotton NP Unavailable Pk Mclean MD Primary Care Provider Dhiraj Mcclain MD Unavailable [phone] Encounter Details Date Type Department Care Team Description 04/30/2023 SCAN Medical Records [address] [place] [id number] [place] [address] Social History Tobacco Use Types Packs/Day Years [...] Never 07/28/2021 How often do you attend [facility] or zoroastrianism services? More than 4 times per year 07/28/2021 Do you belong to any clubs o r organizations such as oriental orthodox groups, unions, fraternal or athletic groups, or [...] place to sleep or slept in a [place] [facility] (including now)? No 07/28/2021 Sex Assigned at Date Recorded Not on file Job Start Date Occupation Industry Not on file Not on file Not on file documented as of this encounter Plan of Treatment Not on file documented as of this encounter Visit Diagnoses Not on filedocumented in this encounter Care Teams Electrician Shop Relationship Specialty Start Date End Date Pk Mclean MD PCP - General Internal Medicine 03/22/22 Ta Davidson MD Specialist Urology 07/28/21 Eliezer Nolen MD Specialist Rheumatology 07/28/21 China Cotton NP Nurse Practitioner Cardiology 10/04/21 Dhiraj Mcclain MD Specialist Cardiology 08/17/23 documented as of this encounter
--- OUTSIDE RECORDS SUMMARY | 2024-06-10 17:27 | XMS_ITS | Encounter Summary ---
Author Organization [facility] Address [address] [place] [address] Care Team Providers Care Display Trimmer Name Role Phone Lisette Denise MD Primary Care Provider U Ta Grande MD Unavailable Unavailable Eliezer Nolen MD Unavailable Unavailable China Cotton NP Unavailable [phone] Pk Mclean MD Primary Care Provider [phone] Dhiraj Mcclain MD Unavailable [phone] Encounter Details Date Type Department Care Team Description 05/23/2018 Release of Information Medical Records [address] [place] [id number] Abstract, Provider Social History Tobacco Use Types Packs/Day Years Used Date Smoking Tobacco: Former Alcohol Habits Answer Date Recorded How often [...] Never 07/28/2021 How often do you attend [facility] or sabianism services? More than 4 times per year 07/28/2021 Do you belong to any clubs o r organizations such as hoahaoism groups, unions, fraternal or athletic groups, or [...] place to sleep or slept in a longterm (including now)? No 07/28/2021 Sex Assigned at Date Recorded Not on file Job Start Date Occupation Industry Not on file Not on file Not on file documented as of this encounter Plan of Treatment Not on file documented as of this encounter Visit Diagnoses Not on filedocumented in this encounter Care Teams Display Trimmer Relationship Specialty Start Date End Date Lisette Denise MD PCP - General Internal Medicine 05/06/18 Pk Mclean MD PCP - General Internal Medicine 03/22/22 Ta Davidson MD Specialist Urology 07/28/21 Eliezer Nolen MD Specialist Rheumatology 07/28/21 China Cotton NP Nurse Practitioner Cardiology 10/04/21 Dhiraj Mcclain MD Specialist Cardiology 08/17/23 documented as of this encounter
--- OUTSIDE RECORDS SUMMARY | 2024-06-10 17:27 | XMS_ITS | Encounter Summary ---
Author Organization [facility] Address [address] [place] [address] Care Team Providers Care Tool Checker Name Role Phone Ta Davidson MD Unavailable Unavailable Eliezer Nolen MD Unavailable Unavailable China Cotton NP Unavailable [phone] Pk Mclean MD Primary Care Provider [phone] Dhiraj Mcclain MD Unavailable [phone] Encounter Details Date Type Department Care Team Description 08/31/2023 SCAN Medical Records [address] [place] [address] Abstract, Provider Social History Tobacco Use Types [...] Never 07/28/2021 How often do you attend [facility] or religion services? More than 4 times per year 07/28/2021 Do you belong to any clubs o r organizations such as yazidi groups, unions, fraternal or athletic groups, or [...] Name Priority Date/Time Associated Diagnosis Comments OUTSIDE ECHO Routine 08/31/2023 documented in this encounter Results * OUTSIDE ECHO (08/31/2023) Provider Default CARDIOLOGY documented in this encounter Visit Diagnoses Not on filedocumented in this encounter Care Teams Tool Checker Relationship Specialty Start Date End Date Pk Mclean MD PCP - General Internal Medicine 03/22/22 Ta Davidson MD Specialist Urology 07/28/21 Eliezer Nolen MD Specialist Rheumatology 07/28/21 China Cotton NP Nurse Practitioner Cardiology 10/04/21 Dhiraj Mcclain MD Specialist Cardiology 08/17/23 documented as of this encounter
--- OUTSIDE RECORDS SUMMARY | 2024-06-10 17:27 | XMS_ITS | Encounter Summary ---
Author Organization [facility] Address [address] [place] [address] Care Team Providers Care Nanny Caregiver Name Role Phone Lisette Denise MD Primary Care Provider U Ta Grande MD Unavailable Unavailable Eliezer Nolen MD Unavailable Unavailable China Cotton NP Unavailable [phone] Pk Mclean MD Primary Care Provider Dhiraj Mcclain MD Unavailable [phone] Reason for Visit * Reason Onset Date Comments refill request 03/26/2020 Encounter Details Date Type Department Care Team Description 03/26/2020 Refill Adult Medicine - [address] [address] Rachel Mata, PAMartineC refill request Social History Tobacco Use Types Packs/Day Years [...] Never 07/28/2021 How often do you attend [facility] or protestant services? More than 4 times per year 07/28/2021 Do you belong to any clubs o r organizations such as episcopalian groups, unions, fraternal or athletic groups, or [...] place to sleep or slept in a senior care (including now)? No 07/28/2021 Sex Assigned at Date Recorded Not on file Job Start Date Occupation Industry Not on file Not on file Not on file documented as of this encounter Miscellaneous Notes * Telephone Encounter - Abena Luz M.A. - 03/26/2020 1:14 PM EST duplicate documented in this encounter Plan of Treatment Not on file documented as of this encounter Visit Diagnoses Not on filedocumented in this encounter Care Teams Nanny Caregiver Relationship Specialty Start Date End Date Lisette Denise MD PCP - General Internal Medicine 05/06/18 Pk Mclean MD PCP - General Internal Medicine 03/22/22 Ta Davidson MD Specialist Urology 07/28/21 Eliezer Nolen MD Specialist Rheumatology 07/28/21 China Cotton NP Nurse Practitioner Cardiology 10/04/21 Dhiraj Mcclain MD Specialist Cardiology 08/17/23 documented as of this encounter
--- OUTSIDE RECORDS SUMMARY | 2024-06-10 17:27 | XMS_ITS | Encounter Summary ---
Author Organization [facility] Address [address] [place] [address] Care Team Providers Care Newspaper Delivery Driver Name Role Phone Pk Mclean MD Primary Care Provider Reason for Visit * Reason Onset Date Comments flecainide (TAMBOCOR) 50 mg tablet 06/09/2024 Headache when lying down Encounter Details Date Type Department Care Team (Late st Contact Info) Description 06/09/[address] [facility] [address] [facility] [address] [place] [id number] Benitez Mills MD 300 [facility] [address] [place] [address] flecainide (TAMBOCOR) 50 mg tablet (Headache when lying down ) Social History Tobacco Use Types Packs/Day Years [...] on file documented as of this encounter Ordered Prescriptions Prescription Sig Dispense Quantity Refills Last Filled Start Date End Date propafenone (RYTHMOL) 150 mg tablet Take 1 tablet (150 mg total) by mouth 2 (two) times a day. 60 tablet 11 06/10/2024 documented in this encounter Progress Notes * Benitez Mills MD - 06/10/2024 10:44 AM EDT I spoke to Thuy about the flecainide. She developed hip and leg pain mostly on the left side after going to bed and had just sleep at recliner. I told her this is a very unusual side effect to be related to the medicine but she is fairly convinced so I will stop the flecainide and have her start propafenone 150 mg twice daily tomorrow. Her pulse ox did show normalization of her heart rate suggesting the medicine was effective. I did ask her to start the medicine tomorrow as she has more the same symptoms tonight to work that up with her primary care physician. It does sound more like sciatic impingement. * Amish Jones RN - 06/09/2024 10:32 AM EDT Please see SHANEKA notes from 06/05/[address] Mills. 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 Is on a trial of Flecainide 50mg BID. Called pt this AM. States she started Flecainide 50mg BID on 06/05 as advised. She has been feeling off at night when laying down in bed since starting the Flecainide. After taking the 50mg at 10:30PM she will lay down and go to sleep and then at 11:45 she will wake up with a CASTANEDA and pain in her hips and legs. States she gets up to go to her recliner and she has leg weakness and becomes slightlylightheaded. Does not feel like she will pass out. Does not monitor BP but states HR in the 70s. She has not checked her HR at night when symptomatic. Last dose of Flecainide was last night, she has not taken AM dose yet. * Mariana Flower - 06/09/2024 10:21 AM EDT Thuy called , She had an office visit with Dr. Mills on 06/05/2024 , He had started her on flecainide (TAMBOCOR) 50 mg tablet . When she lays down at night she gets a headache and can`t sleep . ,Her hips and legs hurt . She is also weak and light headed during the day Mele documented in this encounter Plan of Treatment Upcoming Encounters Date Type Department Care Team (Late st Contact Info) Description 06/16/2024 11:30 AM EDT Ancillary Procedure [facility] - [facility] [address] [place] [address] 07/16/2024 9:20 AM EDT Office Visit [facility] - [address] [place] [address] Dhiraj Mcclain MD [address] [place] [address] [address] [place] [address] 12/01/2024 2:30 PM EDT Office Visit Internal Medicine - [place] 175 [facility] [address] [place] [address] Pk Mclean MD 175 [facility] [address] [place] [address] documented as of this encounter Visit Diagnoses Not on filedocumented in this encounter Discontinued Medications Medication Sig Discontinue Reason Start Date End Da te flecainide (TAMBOCOR) 50 mg tablet Take 1 tablet (50 mg total) by mouth 2 (two) times a day. 06/05/2024 06/10/2024 documented as of this encounter Care Teams Newspaper Delivery Driver Relationship Specialty Start Date End Date Pk Mclean MD [address] [address] PCP - General 03/22/22 documented as of this encounter
--- OUTSIDE RECORDS SUMMARY | 2024-06-10 17:27 | XMS_ITS | Encounter Summary ---
Author Organization [facility] Address [address] [place] [address] Care Team Providers Care Academic Dean Name Role Phone Lisette Denise MD Primary Care Provider [place] MD Unavailable Unavailable Eliezer Nolen MD Unavailable Unavailable China Cotton NP Unavailable [phone] Pk Mclean MD Primary Care Provider [phone] Dhiraj Mcclain MD Unavailable [phone] Reason for Visit * Reason Comments E-prescribe Rx Request Encounter Details Date Type Department Care Team Description 04/26/2021 Refill Adult Medicine B - [address] [address] Nyla Lang PA-C [address] [address] E-prescribe Rx Request Social History Tobacco Use Types Packs/Day Years [...] How often do you attend chur or caodaism services? More than 4 times per year 07/28/2021 Do you belong to any clubs o r organizations such as lutheran groups, unions, fraternal or athletic groups, or [...] have Coronavirus / COVID-19? No / Unsure 04/04/2021 1:36 PM EST documented as of this encounter Miscellaneous Notes * Telephone Encounter - Abena Luz M.A. - 04/26/2021 10:21 AM EST Date of last office visit was 04/04/21. Pended appt for 07/27/21 Lab Results Component Value Date CHOL 196 11/29/2020 LDL 107 11/29/2020 HDL 46 11/29/2020 TRIG 218 11/29/2020 SGOT 16 04/04/2021 SGPT 22 04/04/2021 * Telephone Encounter - Catalinaanselmo Gilmore - 04/26/2021 9:28 AM EST Patient would like script to be: E-PRESCRIBED/FAXED TO PHARMACY WHEN WAS THE PATIENT'S LAST APPOINTMENT IN [address]? 04/04/21 WHEN WAS THE LAST TIME THE PATIENT SAW THEIR PCP? Has not seen pcp Does patient have an upcoming appointment? Yes 07/27/21 (THE MEDICATION REQUESTED IS ON THE MED [...] Patients current insurance carrier is: Payor: [employer] / Plan: MEDICARE FFS $20 [place] [id number] / Product Type: MEDICARE [id number] documented in this encounter Plan of Treatment Not on file documented as of this encounter Visit Diagnoses Not on filedocumented in this encounter Care Teams Academic Dean Relationship Specialty Start Date End Date Lisette Denise MD PCP - General Internal Medicine 05/06/18 Pk Mclean MD PCP - General Internal Medicine 03/22/22 Ta Davidson MD Specialist Urology 07/28/21 Eliezer Nolen MD Specialist Rheumatology 07/28/21 China Cotton NP Nurse Practitioner Cardiology 10/04/21 Dhiraj Mcclain MD Specialist Cardiology 08/17/23 documented as of this encounter
== END 2024-06-10 14:31 | disposition home or self-care (01) ==
LOC: HO.HPS 13:59
PROVIDERS: PCP Student in an Organized Health Care Education/Training Program; Visit Provider Hospitalist
DX: I35.0 Nonrheumatic aortic (valve) stenosis (principal); J96.11 Chronic respiratory failure with hypoxia; J96.12 Chronic respiratory failure with hypercapnia; J41.8 Mixed simple and mucopurulent chronic bronchitis; K21.9 Gastro-esophageal reflux disease without esophagitis
CPT/HCPCS: 99214

== ENCOUNTER → 2024-06-10 13:59 | Outpatient (BNVA) | payer MEDICARE, SELFPAY | PROVIDERS: PCP Student in an Organized Health Care Education/Training Program; Visit Provider Hospitalist | DX: J41.8 Mixed simple and mucopurulent chronic bronchitis (principal); J96.11 Chronic respiratory failure with hypoxia; J96.12 Chronic respiratory failure with hypercapnia; I35.0 Nonrheumatic aortic (valve) stenosis; K21.9 Gastro-esophageal reflux disease without esophagitis; Z99.81 Dependence on supplemental oxygen; Z87.891 Personal history of nicotine dependence | CPT/HCPCS: 99212 ==

== ENCOUNTER 2024-10-13 11:09 | Outpatient (AMB) | payer MEDICARE, SELFPAY ==
--- NOTE | 2024-10-13 11:12 | A.OFFVIS_ITS ---
Vital Signs 10/13/24 11:13 Height 5 ft 9 in Weight 264 lb 8.875 oz BMI 39.1 BP 130/84 Blood Pressure Location Lt brachial Position Sitting Pulse 86 Pulse Source Pulse Oximeter Pulse Oximetry (%) 92 Oxygen Delivery Method Room Air Intake Visit Reasons: COPD Keymodule Assembly Machine Tender Required: No Accompanied by: Self / Same As Patient Allergies No Known Allergies Allergy (Verified 10/13/24 11:16) HPI Comments Details: The patient is an 89-year-old woman with known COPD and also chronic hypoxic respiratory failure on oxygen. She doesn't use the oxygen all the time only with activity. She has had issues with chest pain specially at nighttime. She believes is related to reflux. She went to see her primary care doctor about it and had an EKG that was abnormal. She was admitted to [facility] observation. There she had an x-ray that demonstrated some changes to the left base consistent with an opacity. In addition to that we did review her CT scan of the chest from 2014 demonstrating numerous pulmonary nodules as well as interstitial changes. At this point based on her symptoms, her abnormal chest x- ray and abnormal CT scan back in 2014 she should get a repeat CT scan at this time. We did talk about her underlying reflux disease. The patient will continue following closely the reflux diet. She should also sleep elevated. She continues use her inhaler. She also did mention about having issues with low heart rates on her pulse oximeter. I explained to her that she has to be careful with the actual reading on the oximeter does not always correct. She did follow-up with her rand butting machine operator already.She does complaint of off and on back discomfort she is not sure of his lungs. Is moderate severity. Is transient. Not associated with breathing. The patient is concerned for the possibility of any pulmonary issues. We did review her recent CT scan from February 2019 demonstrating stable pulmonary nodules no evidence of any active pleuritis or any other explanation for her discomfort. 01/17/2022 the patient is here for a pulmonary follow-up visit. She c ontinues to be about the same. complaints of dyspnea on exertion. She had been exercising at some point with a stationary elliptical device. She was using up to 30 minutes. She fell at 2 making some headway. Potentially being discouraged when she went walking and she became very short of breath. She had been using her oxygen. However, when she walks uses a pulse device when she exercises at home she uses continuous flow that was likely contributing to her worsening symptoms. In addition to that environment effective will also plan a role. I did encourage the patient to go back to using her stationary elliptical. She is also having hard time sleeping. She did buy melatonin but she has not used it. I did encourage her to use it at nighttime for sleep aid. I also encouraged her not to take a long nap during the daytime as her affect her ability to sleep at nighttime. She continues to use the Anoro. The patient also has a rest in a. She has not used. 01/22/2023 the patient is here for a pulmonary follow-up visit. The patient is doing fairly well from a respiratory status. Denies any worsening shortness of breath or worsening cough. She continues on her current respiratory regimen which includes Anoro and her rescue inhaler. This appeared to be affecting beneficial. No recent imaging studies to review nor pulmonary function studies. She has been complaining of mainly GI issues with nausea. Denies any aspirations into the lungs. The patient has been taking omeprazole. Will go ahead and increase her omeprazole to 40 mg. have her I did recommend the patient follow-up with GI. Also recommended a barium swallow but she opted not to. If her symptoms persist she should also consider getting an x-ray. her last chest x-ray was back in 11/2021 did not demonstrate any acute disease which is reassuring. 06/06/2023 the patient is here for a pulmonary follow-up visit. Overall the patient continues to have similar symptoms. Continues to have dyspnea on exertion moderate severity. She does use the oxygen with good effect. She also continues on the inhaler therapy. She did have a cardiac catheterization recently at [facility] demonstrated indeed that she has severe aortic stenosis. She did have an evaluation from the Cardiothoracic surgeon. And they did recommend a trans aortic valve replacement. The patient is a good candidate for that although she is waiting for her CT scan of the heart to further address the question. I do believe that having a valve replacement will definitely help her respiratory capacity. Explained to her that it may not necessarily take away the need for oxygen but should allow her to have less dyspnea symptoms. 11/08/2023 the patient is here for a pulmonary follow-up visit. Overall she is doing better. She did have her aortic valve replaced. After she started cardiac rehab. She did recover from COVID. She has still been using her oxygen. She has a hard time carrying the oxygen tanks. They are not portable for her. We did undergo pulmonary function studies which were reviewed. It appears she does have moderate COPD. Her diffusing capacity 32% predicted she little better from before which was only 28%. Therefore she has actually done slightly better compared to 2020. We did go for a walking oximetry and we did a titration study with a portable oxygen concentrator. She was able to maintain her pulse ox with 4 L pulse. She does not need oxygen at rest. We will request a portable oxygen concentrator for the patient in order for her to have better portability outside of the home. She is also going to continue with cardiac rehabilitation. 06/10/2024 the patient is here for pulmonary follow-up visit. Overall the patient has been doing about the same. She does complaint of cough and shortness of breath. But she does not really want to take any additional medications at this time. She is fine taking the Anoro. She also has nasal congestion and postnasal drip. Moderate severity but she does want using nasal sprays right now. She thinks she has allergies. She can always start a allergy medicines he if this provides some relief. She continues use the oxygen with good effect. She has a portable oxygen concentrator that she finally got from [facility] [place]. The POC has been affecting beneficial for her. Therefore will continue with the current therapy. If she does want to start nasal therapy or if she wants to maximize her allergy medicines or if she wants to switch over to Trelegy she will call. 10/13/2024 the patient is here for pulmonary follow-up visit. She is a little annoyed today because she had a bad infection respiratory symptoms back in July. She had call to be seen but we did not have any availability since I was not here. However, the patient became upset because her follow-up appointment was for today when she had been sick months ago. She wished she could be seen sooner during the episode. Explained to her that she should always call back to see if we have any cancellations availability to get back to her. I did give her information about using the portable to make sure that she communicates with us as well. In the meantime she is to be back to her baseline. She does have her oxygen available that she uses with activity and also at her home. She has a respiratory inhalers as prescribed. She did not have a chest x-ray. At this point the patient clinically is doing well. We can consider getting an x-ray specially if her symptoms reoccur. Will follow-up in the springtime otherwise if she develops any other symptoms she will call for an earlier evaluation and recommendations. [facility] Medical History (Updated 11/08/23 @ 23:08 by Tono Gonzalez MD) Severe aortic stenosis GERD (gastroesophageal reflux disease) Back pain Chronic respiratory failure COPD (chronic obstructive pulmonary disease) Family History (System 05/02/23 @ 14:11 by Mindi De Leon) Father No problems noted. Social History Patient Tobacco Use Status: Former Tobacco user Tobacco use type: Cigarette Years Smoked: 40 years Review of Systems Const Reports difficulty sleeping and Denies night sweats ENT Denies change in voice, Reports dry mouth, Denies lip swelling, Denies mouth pain and Denies tongue swelling Card Denies chest pain and Reports dyspnea on exertion Resp Reports cough and Reports dyspnea on exertion GI Denies abdominal pain, Reports dyspepsia and Reports heartburn Musc Reports back pain Neuro Denies Neuro-related abnormal movements Psych Denies no additional complaints Jack/Lymph Denies easy bleeding and Denies lymphadenopathy Aller/Immun Denies lip swelling and Denies tongue swelling Physical Exam Vital Signs: Last Vital Signs Pulse 86 10/13/24 11:13 BP 130/84 10/13/24 11:13 Pulse Ox 92 10/13/24 11:13 Oxygen Delivery Method Room Air 10/13/24 11:13 BMI result Body Mass Index 39.1 Const General: alert HEENT General nose exam: Abnormal external nose present and Nasal discharge present Eyes Pupils: Equal, round and reactive pupils present Neck Neck: Yes normal visual inspection, Yes full ROM and Yes no lymphadenopathy Chest Chest palpation & inspection: normal inspection of the chest Resp Auscultation: diminished lung sounds Cardio Rate: regular rate Rhythm: regular rhythm Heart sounds: S1 normal heart sound present, S2 normal heart sound present and Murmur heart sound present GI Palpation (GI): Soft to palpation and nontender Auscultation: normal bowel sounds General: Yes no CVA tenderness Back/Spine/Pelvis Back: no CVA tenderness Skin General skin exam: rashes and/or lesions noted Neuro Cranial nerves: Yes Equal, round and reactive pupils present Assessment & Plan Assessment & Plan (1) Severe aortic stenosis: Comment: s/p TVAR Code(s): I35.0 - Nonrheumatic aortic (valve) stenosis Category: Medical (2) COPD (chronic obstructive pulmonary disease): Code(s): J44.9 - Chronic obstructive pulmonary disease, unspecified Category: Medical Qualifiers: COPD type: chronic bronchitis Chronic bronchitis type: simple Qualified Code(s): J41.0 - Simple chronic bronchitis (3) Chronic respiratory failure: Code(s): J96.10 - Chronic respiratory failure, unspecified whether with hypoxia or hypercapnia Category: Medical Qualifiers: Respiratory failure complication: hypoxia and hypercapnia Qualified Code(s): J96.11 - Chronic respiratory failure with hypoxia; J96.12 - Chronic respiratory failure with hypercapnia Plan continue Anoro, consider Trelegy Nasal cannula oxygen: revision: The patient benefits from a portable oxygen concentrator in order to have better portability outside of the home.She qualifies for 4L/pulse with acitivity and 2L/min with sleep Melatonin reflux diet F/U 8-12 months Coding Level of Care Code Est Pt Level 4 (76567) Diagnoses Severe aortic stenosis I35.0 Simple chronic bronchitis J41.0 COPD type: chronic bronchitis Chronic bronchitis type: simple Chronic respiratory failure with hypoxia and hypercapnia J96.11; J96.12 Respiratory failure complication: hypoxia and hypercapnia Time Spent (min) 16
[2024-10-13 11:13] VITALS: BP 130/84; PULSE 86; O2SAT 92; BMI 39.1
--- OUTSIDE RECORDS SUMMARY | 2024-10-13 12:29 | XMS_ITS | Clinical Summary ---
Author Organization [facility] Address [address] [facility] [place] [address] Phone Care Team Providers Care Driver Guide Name Role Phone Pk Mclean MD Primary Care Provider [phone] Allergies No known active allergies Medications allopurinoL (ZYLOPRIM) 100 mg tablet Take 1 tablet (100 mg total) by mouth 1 (one) time each day. Active aspirin 81 mg EC tablet Take 1 tablet (81 mg total) by mouth 1 (one) time each day. 4 Active Anoro Ellipta 62.5-25 mcg/actuation inhaler Inhale 1 Puff into the lungs daily. 2 Active Oxygen Therapy (O2) gas Inhale 2 L into the lungs. [employer] Active amoxicillin (AMOXIL) 500 mg capsule Take 4 tablets by mouth once 30-60 minutes prior to dental procedure 4 each 3 5 Active pantoprazole (PROTONIX) 40 mg EC tablet Take 1 tablet (40 mg total) by mouth 2 (two) times a day before meals. Do not crush, chew, or split. 90 each 1 5 01/11/20 25 Active propafenone (RYTHMOL) 150 mg tablet Take 1 tablet (150 mg total) by mouth 2 (two) times a day. 60 tablet 5 5 01/13/20 25 Active pravastatin (PRAVACHOL) 40 mg tablet TAKE 1 TABLET BY MOUTH EVERY DAY 90 tablet 1 5 Active Active Problems Problem Noted Date Diagnosed Date PVC (premature ventricular contraction) 06/06/19 25 Assessment & Plan (06/05/2024 11:48 AM EDT): [...] (BMI) of 36.0 to 36.9 in adult ([facility] V24, [facility] V28) 02/20/2024 Coronary artery disease invo lving [place] coronary artery of [place] heart without angina pectoris 09/14/2023 Low vitamin D level 05/26/2022 Neuropathy 09/21/2020 Recurrent major depressive d isorder, in partial remission ([facility] V24) 02/26/2019 Aortic valve stenosis 09/30/2018 Overview (02/20/2024): [...] and the less than 0.1% risk for [place], stroke or . The patient understands and wishes to proceed with coronary angiogram. All questions answered. Given lab slip to complete blood work today. Assessment & Plan (06/05/2024 11:48 AM EDT): Aortic stenosis status post TAVR. Continue follow up with Dr Mcclain. 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 This is at goal. Continue with pravastatin 40 mg once a day. Osteopenia 04/21/2016 Encounters Date Type Department Care Team Description 09/11/2024 1:00 PM EDT Consult Orthopedic Surgery - [place] [address] [facility] [address] [place] [phone] Armando Vasquez, DPM Foot pain, bilateral (Primary Dx); Lumbosacral radiculopathy 07/29/2024 1:50 PM EDT Office Visit Gastroenterology - [address] [facility] [address] [place] [phone] Maria Teresa Cook, LOT ATTENDANT Gastroesophageal reflux disease, unspecified whether esophagitis present (Primary Dx) 07/16/2024 9:20 AM EDT Office Visit [facility] [address] [place] [address] Dhiraj Mcclain MD PVC (premature ventricular contraction) (Primary Dx); Nonrheumatic aortic valve stenosis; S/P TAVR (transcatheter aortic valve replacement) 07/14/2024 3:45 PM EDT Office Visit Internal Medicine - [place] [address] [place] [phone] Pk Mclean MD Foot pain, bilateral (Primary Dx); Gastroesophageal reflux disease, unspecified whether esophagitis present; Tension-type headache, not intractable, unspecified chronicity pattern; Nausea from Last 3 Months Immunizations Name Administration Dates Next Due Influenza trivalent, 0.5mL ( Fluad) 65yo and older 12/01/2020,12/02/2018,01/05/2017 Influenza, Unspecified 10/29/2022,12/14/2021 Pneumococcal conjugate 20 va lent (Prevnar 20, PCV 20) 2mo and older 10/29/2022 Surgical History Surgery Date Site/Laterality Comments CATARACT EXTRACTION PROCEDURE: HISTORICAL CATARACT REMOVAL UPPER GASTROINTESTINAL ENDOSCOPY 08/26/2013 PROCEDURE: [place] UPPER GI ENDOSCOPY PERFORMED; COMMENT: mild reactive gastropathy COLONOSCOPY 05/03/2006 PROCEDURE: HISTORICAL COLONOSCOPY; COMMENT: Diverticulosis, Internal hemorrhoids. Repeat 5 yrs. No path report received UPPER GASTROINTESTINAL ENDOSCOPY 05/03/2006 PROCEDURE: [place] UPPER GI ENDOSCOPY PERFORMED; COMMENT: Unremarkable COLONOSCOPY 10/24/2010 PROCEDURE: HISTORICAL COLONOSCOPY; COMMENT: Diverticulosis. No path report received UPPER GASTROINTESTINAL ENDOSCOPY 10/24/2010 PROCEDURE: [place] UPPER GI ENDOSCOPY PERFORMED; COMMENT: unremarkable Medical History Medical History Date Comments Chronic obstructive pulmonar y disease (CMS/HCC V24, CMS/HCC V28) 01/05/2017 DX:Chronic obstructive pulm onary disease (HCC) Chronic rhinitis 01/05/2017 DX:Chronic rhin itis Hypoxia 01/05/2017 DX:Hypoxia Osteopenia 04/21/2016 DX:Osteopenia CAD (coronary artery disease) 05/28/2018 DX :CAD (coronary artery disease) Osteoarthritis 05/28/2018 DX:Osteoarthriti s; COMMENT: Thoracic spine Diverticulosis 05/28/2018 DX:Diverticulosi s Hypertension 05/28/2018 DX:Hypertension Gastropathy 05/28/2018 DX:Gastropathy; COMMENT: 2013 mild reactive Gout 05/28/2018 DX:Gout Actinic keratosis 05/28/2018 DX:Actinic ker atosis Murmur 05/28/2018 DX:Murmur Substance abuse ([facility] V24 , [facility] V28) 05/28/2018 DX:Substance abuse ([facility]); COMMENT: 12/2017 Alcohol -binge drinking weekeds 1 [...] Cigarettes Q uit: 03/19/1985 Smokeless Tobacco: Never Tobacco Cessation:Counseling Given: Not Answered Alcohol Use Standard Drinks/Week Comments Yes 0 (1 standard drink = 0.6 oz pur e alcohol) Housing Instability Answer Date Recorde d Are you worried that in the next 2 months you may not have stable housing? No 07/07/2024 Food Access & Nutrition Answer Date Rec orded Do you have access to a vari ety of food including fruits and vegetables? Yes 07/07/2024 Access to Healthcare Answer Date Record ed Within the last 3 months, ho w many times did you visit the emergency department for your medical care? 0 07/07/2024 Health Literacy Answer Date Recorded How often do you need to hav e someone help you when you read instructions, pamphlets, or other written material from your doctor or pharmacy? Never 07/07/2024 Caregiver: How often do you need to have someone help you when you read instructions, pamphlets, or other written material from your doctor or pharmacy? Not on file 07/07/2024 Financial Risk Answer Date Recorded How hard is it for you to pa y for the very basics like food, housing, medical care, and air conditioning / heating? Not very hard 07/07/2024 Transportation Answer Date Recorded Has the lack of transportati on kept you from meetings, work, or from getting things needed for daily living? No Has the lack of transportati on kept you from medical appointments or from getting medications? No 07/07/2024 Social Isolation Answer Date Recorded How often do you feel lonely or isolated from th ose around you? Never 07/07/2024 Food Risk Answer Date Recorded Within the past 12 months we worried whether our food would run out before we got money to buy more. Never true 07/07/2024 Within the past 12 months th e food we bought just didn't last and we didn't have money to get more. Never true 07/07/2024 Dependent Care Answer Date Recorded Do you need help finding or paying for care for your loved ones. For example, child care coordinator or elderly care for an older adult? No 07/07/2024 Education Answer Date Recorded Do you think completing more education or training, like finishing a GED, going to college, or learning a trade, would be helpful for you? No 07/07/2024 Employment and Income Answer Date Recor ded During the last four weeks, have you been actively looking for work? No 07/07/2024 Living Situation Answer Date Recorded What is your living situation? 0 07/07/2024 Comments Unknown Sex and Gender Information Value Date Recorded Sex Assigned at Not on file Legal Sex Female 12:11 PM EST Gender Identity Not on file Sexual Orientation Not on file Obstetrics History Last Filed Vital Signs Vital Sign Reading Time Taken Comments Blood Pressure 116/66 07/16/2024 9:13 AM EDT Pulse 75 07/16/2024 9:13 AM EDT Temperature - - Respiratory Rate - - Oxygen Saturation 91% 07/16/2024 9:13 AM EDT Inhaled Oxygen Concentration - - Weight 122 kg (269 lb) 09/11/2024 12:54 PM EDT Height 175.3 cm (5' 9 ) 09/11/2024 12:54 PM EDT Body Mass Index 39.72 09/11/2024 12:54 PM EDT Plan of Treatment Upcoming Encounters Date Type Department Care Team (Late st Contact Info) Description 10/16/2024 12:30 PM EDT Ancillary Procedure [facility] Cardiology [facility] [address] [place] [address] 12/01/2024 2:30 PM EDT Office Visit Internal Medicine - [place] [address] [facility] [address] [place] [address] Pk Mclean MD [address] [facility] [address] [place] [address] 01/26/2025 2:40 PM EST Office Visit [facility] Cardiology [facility] [address] [place] [phone] Dariela Galdamez NP [address] [place] [address] [place] [address] Health Maintenance Due Date Last Done Comments DTaP,Tdap,and Td Vaccines (1 - Tdap) 1954 Hepatitis A Vaccines (1 of 2 - Risk 2-dose series) 1954 Zoster Vaccines (1 of 2) 1954 Medicare Annual Wellness Visit 02/25/2022 COVID-19 Vaccine (7 - Pfizer risk season) 2024 11/21/2023, 02/26/2023, 01/16/2022, Additional history exists Influenza Vaccine (#1) 2024 , 10/29/2022, 12/14/2021, Additional history exists Hypertension/CHF/CAD Annual BMP Blood Test 11/19/2024 11/20/2023, 11/20/2023, 10/23/2023 Social Influencers of Health Screening 07/07/2025 07/07/2024 Falls Risk Assessment 07/14/2025 07/14/2024 Osteoporosis Screening (Bone Density Screening) 02/27/2028 02/26/2018 Cholesterol Screening (Lipid Panel) 11/19/2028 11/20/2023, 11/20/2023 Pneumococcal Vaccine: 50+ Years Completed 10/29/2022 RSV Immunization Adult Patients Completed 01/24/2023 Depression Screening Completed 07/07/2024 HIB Vaccines Aged Out No longer eligi [...] age to complete this topic Meningococcal B Vaccine Aged Out No l onger eligible based on patient's age to complete this topic RSV Immunization Patients Under 20 months Aged Out No longer eligible based on patient's age to complete this topic Varicella Vaccines Aged Out No longer eligible based on patient's age to complete this topic Procedures Procedure Name Priority Date/Time Associated Diagnosis Comments EXTERNAL ENDOSCOPY REPORT Routine 09/11/2024 1:39 PM EDT EXTERNAL COLONOSCOPY REPORT Routine 09/11/2024 1:38 PM EDT ANNUAL BMP BLOOD TEST Routine 11/20/2023 LIPID PANEL Routine 11/20/2023 [facility] DEXA AXIAL SKELETON Routine 02/26/2018 8:20 AM EST Encounter for screening for osteoporosis from Last 3 Months or Most Recently Relevant to Health Maintenance Results * External Endoscopy (09/11/2024 1:39 PM EDT) Anatomical Region Laterality Modality Endoscopy Historical Provider GI~PROCEDURE ORDERABLES F inal Result * External Colonoscopy Report (09/11/2024 1:38 PM EDT) Anatomical Region Laterality Modality Endoscopy Historical Provider GI~PROCEDURE ORDERABLES F inal Result * Annual BMP Blood Test (11/20/2023) Annual BMP Blood Test abstracted Historical Provider HEALTH MAINTENANCE Final Result * (ABNORMAL) Lipid panel (11/20/2023) LDL/HDL Ratio 4 0 - 4 Triglycerides 196(A) 0 - 150 mg/dL Cholesterol 206(A) 0 - 200 mg/dL HDL 53 >=40 mg/dL LDL Cholesterol 114(A) 0 - 100 mg/dL Blood Venous blood specimen / Unknown us Historical Provider LAB BLOOD ORDERABLES Amanda l Result * [facility] DEXA AXIAL SKELETON (02/26/2018 8:20 AM EST) Anatomical Region Laterality Modality Mammography 02/25/2018 2:01 PM EST Narrative 02/26/2018 8:20 AM EST [facility] Diagnostic Imaging Department [address] [place] [address] Patient: GEM VERA /Age/Sex: 1935 82 - F Unit#: [id number] Location/Status: [facility] Mnemonic/Ordering Site: [facility] Ordering Physician: GERARDO DAWSON MD [facility] Dexa Axial Skeleton - 02/25/18 1133 HISTORY: The patient is an 82-year-old postmenopausal female with clinical concern for metabolic bone disease. FINDINGS: Dual [...] 113% of that of age matched controls. This yields a T-score of -0.3 and a Z-score of 0.9 and there is therefore no evidence of osteoporosis or osteopenia here. However, the T-score of the right femoral neck is -1.5 which is diagnostic of osteopenia. IMPRESSION: 1. Osteopenia. There has been a decrease of 3.2% in bone mineral density in the lumbar spine since the prior examination of 08/17/2011. There has been an increase of 1.6% in bone mineral density in the right femur and an increase of 5.7% in bone mineral density in the left femur. 2. FRAX analysis yields a 10-year probability of major osteoporotic fracture of 21.0% and a 10-year probability of hip fracture of 11.5%. Code 89308 Dictating Physician: VICENTE KENDALL MD Electronically Signed by: VICENTE KENDALL MD Dic Date/Time: 02/26/18818 Sign date/Time: 02/26/18819 Procedure Note Vicente Kendall MD - 03/07/2022 [facility] Diagnostic Imaging Department [address] [place] [address] Patient: GEM VERA Joe /Age/Sex: 1935 82 - F Unit#: [id number] Location/Status: SPDIMAM/REG CLI Mnemonic[facility] Ordering Physician: GERARDO DAWSON MD [facility] Dexa Axial Skeleton - 02/25/18 - 6607 HISTORY: The patient is an 82-year-old postmenopausal [...] density of the femurs bilaterally is 0.973 gm/dy1bmrlt is 97% of that of young normals [...] probability of hip fracture of 11.5%. Code 29296 Dictating Physician: VICENTE EKNDALL MD Electronically Signed by: VICENTE KENDALL MD Dic Date/Time: 02/26/18818 Sign date/Time: 02/26/18819 Gerardo Dawson MD IMG BI PROCEDURES Final Result from Last 3 Months or Most Recently Relevant to Health Maintenance Insurance [employer] MEDICARE ADVANTAGE Care Teams Driver Guide Relationship Specialty Start Date End Date Pk Mclean MD [address] [place] [address] [address] [place] [address] PCP - General 03/22/22
--- OUTSIDE RECORDS SUMMARY | 2024-10-13 12:29 | XMS_ITS | Data Portability ---
Author Organization [place] [facility], Allergy Address [address] [place] [address] Care Team Providers Care Director Safety Council Name Role Phone JIMMIE CLAYTON Primary Care Provider [phone] Assessment Encounter Date Assessment Date Assessment LastModified [...] candidate for septoplasty. Will continue to use [place] gel for occasional epistaxis. Otherwise she may follow-up as needed. paolo Not available 10/17/2023 11:37:22 Plan of Treatment Reminders Order Date Submit Date Provider Last Modified By Organization Details Last Modified Time Details Appointments None recorded . Lab None recorded . Referral None recorded . Procedures None recorded . Surgeries None recorded . Imaging CT, sinuses, w/o contrast 2023 024 konstantin [facility], [address] [place] [address], [place], [address], 11:13:38 Medication Orders None recorded . Patient TargetsNo targets recorded. Patient InstructionsNo instructions recorded. Reason for Referral None Reported. Results Created Date Observation Date Name Description Value Unit Range Abnormal Flag Note LastModifiedBy Organization Detail LastModifiedTime 10/17/19 CT, sinus es, w/o contr ast No observ ation record ed. [facility] [address] [facility], [place], [address], 10/17/2023 11:05:33 10/25/19 24 10/17/2023 CT, sinus es, w/o contr ast No observ ation record ed. [facility] [address] [facility] [address] [facility] [address], [place], [address], 10/25/2023 07:43:17 10/25/19 24 10/17/2023 CT, sinus es, w/o contr ast No observ ation record ed. [facility] [address] [facility] [address], [place], [address], 10/25/2023 07:43:17 11/06/19 24 07/03/2018 imagi ng/di agnos tic resul t No observ ation record ed. [email or web address] Not Available 15:58:15 Result Notes None recorded. Problems Name Problem SNOMED Code Status Onset Date Resolution Date Notes Provider Name and Address Organization Details Recorded Time Chronic sinusitis 30029178 Active 2014 Chronic sinusitis; Note: Date Diagnosed: 05/27/2014 12:10 PM (473.9) Not Available [facility] 4 03:19:57 Nasal congestio n 71773398 Active 2018 Nasal congestion ; Note: Date Diagnosed: 06/21/2018 4:15 PM (R09.81) Not Available [facility] 4 03:19:58 Deviated nasal septum 128016306 Active 2018 Deviated nasal septum; Note: Date Diagnosed: 06/17/2014 3:58 PM (470) ; Start Date : 06/17/2014 Deviated nasal septum; Note: Date Diagnosed: 06/21/2018 3:53 PM (J34.2) Not Available [facility] 4 03:19:57 Chronic rhinitis 43890029 Active 2018 Chronic rhinitis; Note: Date Diagnosed: 06/21/2018 3:53 PM (J31.0) Not Available [facility] 4 03:19:57 Disturban 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 Medical Equipment None Reported. Allergies Allergen ID Allergen Name Allergen Category Reaction Reaction Severity Criticality Documentation Date Start Date Code Code System Note Provider Name and Address Organization Details Recorded Time 57808 ciproflox acin hydrochlo ride medicatio n other Not available Not available 07/31/2023 93876 RxNorm React ion: unkno wn, unspe cifie d;; Not Available [facility] 4 00:48:43 Medications Name Sig Start Date Stop Date Status Note LastModified by Organization Details LastModified Time Augmentin 875 mg-125 mg tablet 06/17 [place]: [id number] Du ration Value: 14 Prescri bed By Name: BAYRON Sawyer nd Name: Taniya roy Send Method: E-Prescr ibed Sub s Allowed: [...] by mouth 10/16 completed Medicati on ID: [id number] Du ration Value: 5 Prescri bed By Name: BAYRON Sawyer nd Name: predniso ne Send Method: E-Prescr ibed Sub s Allowed: subs OK Medic ationGen ericName : predniso ne Medic ation ID: [id number] Du ration Value: 5 Prescri bed By [...] mg tablet 10/16 completed Medicati on ID: [id number] Br and Name: metoprol ol tartrate Send Method: E-Prescr ibed Sub s Allowed: subs OK Medic ationGen ericName : metoprol ol tartrate Medicat ion ID: [id number] Br and Name: metoprol ol tartrate Send [...] a day 2018 active Medicati on ID: [id number] D uration Value: 30 Prescri bed By Name: BAYRON Ennis nd Name: fluticas one propiona te Send Method: E-Prescr ibed Sub s Allowed: subs OK Medic ationGen ericName : fluticas one propiona te Not Available Not Available Not Available ipratropi um bromide 21 mcg (0.03 %) nasal spray 1 spray into both nostrils 08/13 completed Medicati on ID: [id number] P rescribe d By Name: Sonali De La O nd Name: ipratrop ium bromide Send Method: E-Prescr ibed Sub s Allowed: subs OK Medic ationGen ericName : ipratrop ium bromide Not Available Not Available Not Available Livalo 2 mg tablet 10/16 completed Medicati on ID: [id number] D uration Value: 30 Brand Name: Livalo S end Method: E-Prescr ibed Sub s Allowed: subs OK Medic ationGen ericName : Livalo M edicatio n ID: [id number] D uration Value: 30 Brand Name: Livalo S end Method: E-Prescr ibed Sub s Allowed: subs OK Medic ationGen ericName : Livalo Not Available Not Available Not Available Anoro Ellipta 62.5 mcg-25 mcg/actua tion powder for inhalatio n active Not Available Not Available Not Available Spiriva Respimat 2.5 mcg/actua tion solution for inhalatio n 10/16 completed Medicati on ID: [id number] D uration Value: 90 Brand Name: Spiriva Respimat Send Method: E-Prescr ibed Sub s Allowed: subs OK Medic ationGen ericName : Spiriva Respimat Medicat ion ID: [id number] D uration Value: 90 Brand Name: Spiriva [...] SNOMED-CT Code Diagnosis ICD10 Code Diagnosis Note 56266 ANSON HUI PA-C [facility] [address] [address] 10/17/2023 10:02:38 10/17/2023 11:13:38 Chronic rhinitis 86191676 J31.0 Nasal congestion 4687672 0 R09.81 Health Concerns Section Related Observation LastModified by Organization Detai ls LastModified Time None Recorded Concern Status LastModified by Organization Details LastModified Time None Recorded Advance Directives Directive None Recorded Payers Insurance Date Sequence Insurance Name Policy Number Policy Nielsen Covered Member ID Nielsen Member ID Guarantor Name 10/18/2023 1 [employer] (MEDICARE REPLACEMENT/ ADVANTAGE - PPO) [id number] Thuy Vera [id number] Thuy Vera OBGyn Episode No OBEpisode recorded.
--- OUTSIDE RECORDS SUMMARY | 2024-10-13 12:29 | XMS_ITS | Clinical Summary ---
Author Organization [facility] Address [address] [place] [address] Care Team Providers Care Manager Patient Name Role Phone Unavailable Primary Care Provider [...] Vaccine ( - 2023-2 5 season) 2023 Influenza (#1) 2024 HPV Vaccine (No Doses Required) Completed Hep A Aged Out No longer eligi [...]
--- OUTSIDE RECORDS SUMMARY | 2024-10-13 12:29 | XMS_ITS | Clinical Summary ---
Author Organization [facility] Address [address] [place] [address] Care Team Providers Care Cigarette Filter Inspector Name Role Phone Unavailable Primary Care Provider Unavailabl e Social History Tobacco Use Types Packs/Day Years Used Date Smoking Tobacco: Never Assessed Comments Unknown Sex and Gender Information Value Date Recorded Sex Assigned at Not on file Legal Sex Female 4:34 PM EDT Gender Identity Not on file Sexual [...]
--- OUTSIDE RECORDS SUMMARY | 2024-10-13 12:29 | XMS_ITS ---
Author Name [facility] Organization Unknown Care Team Organization Name Specialty Phone Email Start Date End Da te [facility] Termed, PROVIDER Primary Care 01/24/202210/17 [facility] Robinson Rodríguez MD Primary Care 12/09/2020 11/05/2023
== END 2024-10-13 11:39 | disposition home or self-care (01) ==
LOC: HO.HPS 11:10
PROVIDERS: PCP Student in an Organized Health Care Education/Training Program; Visit Provider Hospitalist
DX: I35.0 Nonrheumatic aortic (valve) stenosis (principal); J41.0 Simple chronic bronchitis; J96.11 Chronic respiratory failure with hypoxia; J96.12 Chronic respiratory failure with hypercapnia
CPT/HCPCS: 99214

== ENCOUNTER → 2024-10-13 11:09 | Outpatient (BNVA) | payer MEDICARE, SELFPAY | PROVIDERS: PCP Student in an Organized Health Care Education/Training Program; Visit Provider Hospitalist | DX: J41.0 Simple chronic bronchitis (principal); J96.11 Chronic respiratory failure with hypoxia; J96.12 Chronic respiratory failure with hypercapnia; I35.0 Nonrheumatic aortic (valve) stenosis | CPT/HCPCS: 99212 ==